=== PATIENT | female | born 1985 | race Caucasian/White ===

== ENCOUNTER 2018-10-19 16:20 | Inpatient (IN) | payer SELFPAY ==
[2018-10-19 17:11] LABS: Protime INR 1.18
--- NOTE | 2018-10-19 17:14 | EKG ---
Test Date: 2018-10-19 Test Time: 16:47:58 Powder Room Attendant: MARV MEASUREMENT RESULTS: Intervals: Rate: 108 ND: 150 QRSD: 74 QT: 364 QTc: 487 [place]: P: 38 ND: 150 QRS: 2 T: 55 INTERPRETIVE STATEMENTS: Sinus tachycardia Voltage criteria for left ventricular hypertrophy Abnormal ECG No previous ECG available for comparison Electronically Signed On 10-19-18 17:13:04 NEONATAL SPECIALIST by Yosvany Molina
--- NOTE | 2018-10-19 17:21 | RAD REPORT ---
EXAM DESCRIPTION: RAD - Chest Single View - 10/19/2018 5:06 pm CLINICAL HISTORY: Left-sided chest pain COMPARISON: June 2012 TECHNIQUE: AP portable chest image was obtained 1652 hours . FINDINGS: Lungs are clear. Heart and vasculature are normal. No measurable pleural effusion and no p neumothorax. No acute bony abnormality seen. No acute aortic findings suspected. Under penetrated por table technique, shallow inspiration and large body habitus accentuate chest findings. IMPRESSION: No acute cardiopulmonary process. No significant change from comparison.
[2018-10-19 17:24] LABS: ALT/SGPT 111 U/L (12-78); AST/SGOT 64 U/L (15-37); Albumin 3.9 g/dL (3.4-5.0); Alkaline Phosphatase 107 U/L (45-117); BUN Blood Urea Nitrogen 13 mg/dL (7-18); Bicarbonate 25 mmol/L (21-32); Bilirubin Direct 0.2 mg/dL (0-0.2); Bilirubin Total 0.6 mg/dL (0.2-1.0); Glucose Level 224 mg/dL (74-106); Magnesium 2.2 mg/dL (1.8-2.4); NT PRO-BNP 86 pg/mL (<125); Potassium 3.5 mmol/L (3.5-5.1); Protein, Total 8.4 g/dL (6.4-8.2); Sodium Level 134 mmol/L (136-145); Troponin (Emerg Dept Use Only) < 0.02 ng/mL (0.0-0.045)
[2018-10-19] MEDS ORDERED: ASPIRIN 81 MG CHEWABLE TABLET ONE (17:26)
[2018-10-19] MEDS ORDERED: LABETALOL 20 MG/4ML SYRINGE IV ONE ×2 (17:26→19:50)
[2018-10-19 17:28] LABS: Absolute Lymphocytes (CBC) 1.6 K/uL (0.7-4.9); Absolute Monocytes 0.3 K/uL (0.1-1.3); Absolute Neutrophil 4.9 K/uL (1.8-8.0); Basophils % 0.5 % (0-1.3); Eosinophils % 1.8 % (0-4.4); Hematocrit 39.5 % (36.0-45.0); Lymphocytes % 22.8 % (15.3-44.8); MPV 8.4 fL (7.6-11.3); Monocytes % 4.3 % (3.3-12.3)
[2018-10-19] MEDS ORDERED: AMLODIPINE 5 MG TAB ONE (17:57)
[2018-10-19] MEDS ORDERED: LISINOPRIL 10 MG TAB ONE (17:58)
--- NOTE | 2018-10-19 18:09 | ER ---
Nurse's Notes [facility] Name: Maren Woodard Age: 33 yrs Sex: Female : 1985 Arrival Date: 10/19/2018 Time: 16:21 Bed 5 Private MD: None, None Diagnosis: Chest pain, unspecified;Hypertensive Emergency;Type 2 diabetes mellitus Presentation: 10/19 16:46 Presenting complaint: Patient states: Intermittent L sided chest pain since , ph also reports intermittent SOB, nausea, and palpitations, denies dizziness or radiation. Transition of care: patient was not received from another setting of care. Onset of symptoms was October 19, 2018. Risk Assessment: Do you want to hurt yourself or someone else? Patient reports no desire to harm self or others. Initial Sepsis Screen: Does the patient meet any 2 criteria? No. Patient's initial sepsis screen is negative. Does the patient have a suspected source of infection? No. Patient's initial sepsis screen is negative. Care prior to arrival: None. 16:46 Method Of Arrival: Ambulatory ph 16:46 Acuity: CEDRICK 3 ph Triage Assessment: 19:23 General: Behavior is calm, cooperative, appropriate for age. 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 - Social history:: Smoking status: Patient/guardian denies using tobacco. - Ebola Screening: : No symptoms or risks identified at this time. Screenin:44 Abuse screen: Denies threats or abuse. Denies injuries from another. Nutritional sv screening: No deficits noted. Tuberculosis screening: No symptoms or risk factors identified. Fall Risk None identified. Assessment: 17:30 Reassessment: Patient appears in no apparent distress at this time. No changes from sv previously documented assessment. Patient and/or family updated on plan of care and expected duration. Pain level reassessed. Patient is alert, oriented x 3, equal unlabored respirations, skin warm/dry/pink. 18:09 Reassessment: Patient appears in no apparent distress at this time. No changes from sv previously documented assessment. Patient and/or family updated on plan of care and expected duration. Pain level reassessed. Patient is alert, oriented x 3, equal unlabored respirations, skin warm/dry/pink. 18:15 Reassessment: Dr Correa in to speak with the pt. sv 18:42 Reassessment: Patient appears in no apparent distress at this time. No changes from sv previously documented assessment. Patient and/or family updated on plan of care and expected duration. Pain level reassessed. Patient is alert, oriented x 3, equal unlabored respirations, skin warm/dry/pink. 19:20 Reassessment: Patient aware of pending admission. General: Appears in no apparent lp1 distress. Pain: Denies pain. Cardiovascular: Patient's skin is warm and dry. Respiratory: Respiratory effort is even, unlabored. Derm: Skin is pink, warm \T\ dry. Musculoskeletal: Circulation, motion, and sensation intact. 19:21 Pain: Pain does not radiate. lp1 19:39 Reassessment: Provider notified of BP of 207/131, HR 107; Patient states feeling lp1 anxious. 20:30 Reassessment: Attempted to call report at this time. lp1 20:50 Reassessment: Patient appears in no apparent distress at this time. Patient is alert, lp1 oriented x 3, equal unlabored respirations, skin warm/dry/pink. Patient states feeling anxious,provider notified Patient states feeling better. Patient states symptoms have improved. Vital Signs: 16:48 Pulse 116; Resp 20; Temp 97.4; Pulse Ox 98% on R/A; Height 5 ft. 7 in. (170.18 cm); ph Pain 5/10; 17:02 BP 217 / 125; sv 17:31 BP 177 / 114; Pulse 96 MON; Resp 15; Pulse Ox 98% ; sv 18:00 BP 211 / 130; Pulse 100; Resp 16; Pulse Ox 98% ; sv 18:32 BP 249 / 149; Pulse 118; Resp 16; Pulse Ox 97% on R/A; sv 18:33 BP 223 / 136; Pulse 104; Resp 20; Pulse Ox 100% ; sv 19:19 BP 196 / 121; Pulse 101; Resp 17; Pulse Ox 97% on R/A; Pain 0/10; lp1 19:30 BP 207 / 131; Pulse 107; Resp 19; Pulse Ox 97% on R/A; lp1 20:00 BP 186 / 122; Pulse 93; Resp 18; Pulse Ox 98% on R/A; lp1 20:23 BP 155 / 98; Pulse 97; Resp 20; Pulse Ox 97% on R/A; lp1 20:35 BP 157 / 96; Pulse 96; Resp 19; Pulse Ox 97% on R/A; lp1 20:55 BP 141 / 95; Pulse 107; Resp 19; Pulse Ox 98% on R/A; lp1 17:31 Sinus Rhythm sv ED Course: 16:21 Patient arrived in ED. sb2 16:24 None, None is Private Physician. sb2 16:44 Jewels Yang, RN is Primary Nurse. sv 16:44 Arm band placed on. sv 16:44 Patient has correct armband on for positive identification. Placed in gown. Bed in low sv position. Pulse ox on. NIBP on. 16:47 Torsten Hill PA is PHCP. jr8 16:47 Dean Lopez MD is Attending Physician. jr8 16:47 Triage completed. ph 16:50 Initial lab(s) drawn, by nc, sent to lab. Inserted saline lock: 20 gauge in right sv antecubital area, using aseptic technique. Blood collected. Flushed right antecubital with 5 ml normal saline. 17:03 X-ray completed. Portable x-ray completed in exam room. Patient tolerated procedure sg4 well. 17:07 XRAY Chest (1 view) In Process Unspecified. EDMS 17:08 EKG done, by audio visual technician. reviewed by Torsten LOFTON. sm3 17:57 Hemoglobin A1c Sent. sv 18:07 Lynette Correa MD is Hospitalizing Provider. jr8 18:10 Awaiting re-evaluation by ER provider. sv 19:09 Report given to Linnette RN and Acacia RN. sv 19:11 Primary Nurse role handed off by Jewels Yang, OBEY sv 19:19 Linnette Sinclair, RN is Primary Nurse. lp1 19:22 No provider procedures requiring assistance completed. Patient admitted, IV remains in lp1 place. Patient maintains SpO2 saturation greater than 95% on room air. Administered Medications: 17:19 Drug: Labetalol 10 mg Route: IVP; Infused Over: 2 mins; Site: right antecubital; sv 17:32 Follow up: Response: No adverse reaction sv 17:23 Drug: Aspirin Chewable Tablet 324 mg Route: PO; sv 17:32 Follow up: Response: No adverse reaction sv 17:49 Drug: Norvasc 10 mg Route: PO; sg 18:10 Follow up: Response: No adverse reaction sv 17:49 Drug: Lisinopril 10 mg Route: PO; sg 18:09 Follow up: Response: No adverse reaction sv 18:38 Drug: Labetalol 10 mg Route: IVP; Infused Over: 2 mins; Site: right antecubital; sv 19:40 Follow up: Response: Blood pressure is unchanged lp1 19:45 Drug: Labetalol 20 mg Route: IVP; Infused Over: 2 mins; Site: right antecubital; lp1 20:26 Follow up: Response: Blood pressure is lowered lp1 20:55 Drug: XANax Tablet 0.5 mg Route: PO; lp1 20:56 Follow up: Given prior to admission lp1 Intake: Outcome: 18:08 Decision to Hospitalize by Provider. grace 19:23 Condition: stable lp1 19:23 Instructed on the need for admit. 20:55 Admitted to Med/surg accompanied by tech, via wheelchair, room 204, with chart, Report lp1 called to OBEY Kelsey 21:10 Patient left the ED. lp1 Signatures: Dispatcher [employer] EDJewels Rocha RN RN sv Gay, Steven, RN RN sg Pena, Laura, RN RN lp1 Torsten Hill PA PA jr8 Hall, Patricia, RN RN Nisreen Enciso [facility] Sofiya Jorge 3 Lexy Jorgensen 4
--- NOTE | 2018-10-19 18:09 | EDPHYS ---
Physician Documentation [facility] Name: Maren Woodard Age: 33 yrs Sex: Female : 1985 Arrival Date: 10/19/2018 Time: 16:21 Bed 5 Private MD: None, None ED Physician Dean Lopez HPI: 10/19 18:04 This 33 yrs old Female presents to ER via Ambulatory with complaints of Chest jr8 Pain. 18:04 The patient or guardian reports chest pain that is located primarily in the substernal jr8 area, anterior chest wall, left. The pain does not radiate. Associated signs and symptoms: Pertinent positives: dizziness, headache, nausea, shortness of breath. The chest pain is described as sharp. Duration: The patient or guardian reports multiple episodes. Modifying factors: The symptoms are alleviated by nothing. the symptoms are aggravated by emotionally stressful situations. Severity of pain: At its worst the pain was moderate in the emergency department the pain has improved mildly. The patient has not experienced similar symptoms in the past. The patient has not recently seen a physician. 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 - Social history:: Smoking status: Patient/guardian denies using tobacco. - Ebola Screening: : No symptoms or risks identified at this time. ROS: 18:04 Eyes: Negative for injury, pain, redness, and discharge, ENT: Negative for injury, jr8 pain, and discharge, Neck: Negative for injury, pain, and swelling, Back: Negative for injury and pain, MS/Extremity: Negative for injury and deformity, Skin: Negative for injury, rash, and discoloration. 18:04 Cardiovascular: Positive for chest pain, Negative for edema, orthopnea, palpitations, paroxysmal nocturnal dyspnea. 18:04 Respiratory: Positive for dyspnea on exertion, shortness of breath, Negative for cough, orthopnea, pleurisy, sputum production, wheezing. 18:04 Abdomen/GI: Positive for nausea, Negative for abdominal pain, vomiting, diarrhea, constipation, abdominal cramps, abdominal distension. 18:04 Neuro: Positive for dizziness, headache, Negative for altered mental status, gait disturbance, loss of consciousness, numbness, seizure activity, speech changes, syncope, near syncope, tingling, tinnitus, tremor, visual changes, weakness. Exam: 18:04 Eyes: Pupils equal round and reactive to light, extra-ocular motions intact. Lids and jr8 lashes normal. Conjunctiva and sclera are non-icteric and not injected. Cornea within normal limits. Periorbital areas with no swelling, redness, or edema. ENT: Nares patent. No nasal discharge, no septal abnormalities noted. Tympanic membranes are normal and external auditory canals are clear. Oropharynx with no redness, swelling, or masses, exudates, or evidence of obstruction, uvula midline. Mucous membranes moist. Neck: Trachea midline, no thyromegaly or masses palpated, and no cervical lymphadenopathy. Supple, full range of motion without nuchal rigidity, or vertebral point tenderness. No Meningismus. Respiratory: Lungs have equal breath sounds bilaterally, clear to auscultation and percussion. No rales, rhonchi or wheezes noted. No increased work of breathing, no retractions or nasal flaring. Abdomen/GI: Soft, non-tender, with normal bowel sounds. No distension or tympany. No guarding or rebound. No evidence of tenderness throughout. Back: No spinal tenderness. No costovertebral tenderness. Full range of motion. Skin: Warm, dry with normal turgor. Normal color with no rashes, no lesions, and no evidence of cellulitis. MS/ Extremity: Pulses equal, no cyanosis. Neurovascular intact. Full, normal range of motion. Neuro: Awake and alert, GCS 15, oriented to person, place, time, and situation. Cranial nerves II-XII grossly intact. Motor strength 5/5 in all extremities. Sensory grossly intact. Cerebellar exam normal. Normal gait. 18:04 Cardiovascular: Rate: tachycardic, Rhythm: regular, Pulses: Pulses are 2+ in right radial artery and left radial artery. Heart sounds: normal, normal S1and S2, no S3 or S4, no murmur, no rub, no gallop, Edema: is not appreciated, JVD: is not appreciated. 18:04 ECG was reviewed by the Attending Physician. [facility] Vital Signs: 16:48 Pulse 116; Resp 20; Temp 97.4; Pulse Ox 98% on R/A; Height 5 ft. 7 in. (170.18 cm); ph Pain 5/10; 17:02 BP 217 / 125; sv 17:31 BP 177 / 114; Pulse 96 MON; Resp 15; Pulse Ox 98% ; sv 18:00 BP 211 / 130; Pulse 100; Resp 16; Pulse Ox 98% ; sv 18:32 BP 249 / 149; Pulse 118; Resp 16; Pulse Ox 97% on R/A; sv 18:33 BP 223 / 136; Pulse 104; Resp 20; Pulse Ox 100% ; sv 19:19 BP 196 / 121; Pulse 101; Resp 17; Pulse Ox 97% on R/A; Pain 0/10; lp1 19:30 BP 207 / 131; Pulse 107; Resp 19; Pulse Ox 97% on R/A; lp1 20:00 BP 186 / 122; Pulse 93; Resp 18; Pulse Ox 98% on R/A; lp1 20:23 BP 155 / 98; Pulse 97; Resp 20; Pulse Ox 97% on R/A; lp1 20:35 BP 157 / 96; Pulse 96; Resp 19; Pulse Ox 97% on R/A; lp1 20:55 BP 141 / 95; Pulse 107; Resp 19; Pulse Ox 98% on R/A; lp1 17:31 Sinus Rhythm sv MDM: 16:47 Patient medically screened. jr8 18:04 Data reviewed: vital signs, nurses notes, lab test result(s), EKG, radiologic studies, jr8 plain films. Data interpreted: Pulse oximetry: on room air is 98 %. Interpretation: normal. Counseling: I had a detailed discussion with the patient and/or guardian regarding: the historical points, exam findings, and any diagnostic results supporting the discharge/admit diagnosis, lab results, radiology results, the need for further work-up and treatment in the hospital. Physician consultation: Lynette Correa MD was called at 18:07, was contacted at 18:07, regarding admission, to the telemetry unit. consult, patient's condition, and will see patient. 10/19 16:51 Order name: Basic Metabolic Panel; Complete Time: 17:40 jr8 10/19 16:51 Order name: CBC with Diff; Complete Time: 17:40 8 10/19 16:51 Order name: LFT's; Complete Time: 17:40 10/19 16:51 Order name: Magnesium; Complete Time: 17:40 10/19 16:51 Order name: NT PRO-BNP; Complete Time: 17:40 10/19 16:51 Order name: PT-INR; Complete Time: 17:15 10/19 16:51 Order name: Troponin (emerg Dept Use Only); Complete Time: 17:40 10/19 16:51 Order name: XRAY Chest (1 view); Complete Time: 17:24 10/19 17:40 Order name: Hemoglobin A1c [facility] 10/19 17:57 Order name: Hemoglobin A1c; Complete Time: 18:44 EDMS 10/19 21:10 Order name: Urine Dipstick--Ancillary (enter results) [facility] 10/19 21:10 Order name: Urine --Ancillary (enter results) [facility] 10/19 16:51 Order name: EKG; Complete Time: 16:52 10/19 16:51 Order name: Cardiac monitoring; Complete Time: 17:03 10/19 16:51 Order name: EKG - Nurse/Tech; Complete Time: 17:03 10/19 16:51 Order name: IV Saline Lock; Complete Time: 17:03 10/19 16:51 Order name: Labs collected and sent; Complete Time: 17:03 10/19 16:51 Order name: O2 Per Protocol; Complete Time: 17:04 10/19 16:51 Order name: O2 Sat Monitoring; Complete Time: 17:04 10/19 16:51 Order name: Urine Test (obtain specimen); Complete Time: 21:08 10/19 16:51 Order name: Urine Dipstick-Ancillary (obtain specimen); Complete Time: 21: EC:04 Rate is 108 beats/min. Rhythm is regular, Sinus tachycardia. QRS [place] is Normal. [place] jr8 interval is shortened at 150 msec. QRS interval is normal at 74 msec. QT interval is normal at 364 msec. No Q waves. T waves are Normal. No ST changes noted. Clinical impression: Sinus tachycardia. Interpreted by me. Reviewed by me. Administered Medications: : Drug: Labetalol 10 mg Route: IVP; Infused Over: 2 mins; Site: right antecubital; sv 17:32 Follow up: Response: No adverse reaction sv 17:23 Drug: Aspirin Chewable Tablet 324 mg Route: PO; sv 17:32 Follow up: Response: No adverse reaction sv 17:49 Drug: Norvasc 10 mg Route: PO; sg 18:10 Follow up: Response: No adverse reaction sv 17:49 Drug: Lisinopril 10 mg Route: PO; sg 18:09 Follow up: Response: No adverse reaction sv 18:38 Drug: Labetalol 10 mg Route: IVP; Infused Over: 2 mins; Site: right antecubital; sv 19:40 Follow up: Response: Blood pressure is unchanged lp1 19:45 Drug: Labetalol 20 mg Route: IVP; Infused Over: 2 mins; Site: right antecubital; lp1 20:26 Follow up: Response: Blood pressure is lowered lp1 20:55 Drug: XANax Tablet 0.5 mg Route: PO; lp1 20:56 Follow up: Given prior to admission lp1 Disposition: 10/20 07:41 Co-signature as Attending Physician, Dean Lopez MD I agree with the assessment and kdr plan of care. Disposition: 10/19/18 18:08 Hospitalization ordered by Lynette Correa for Observation. Preliminary diagnosis are Chest pain, unspecified, Hypertensive Emergency, Type 2 diabetes mellitus. - Bed requested for Telemetry/MedSurg (observation). - Status is Observation. lp1 - Condition is Stable. - Problem is new. - Symptoms have improved. UTI on Admission? No Signatures: Dispatcher [employer] EDAL Jeanette Blackmon Jewels Yang RN OBEY Martin Murillo RN RN Dean Lopez MD MD kdr Martinez, Eric em1 Linnette Sinclair RN RN lp1 Torsten Hill PA PA jr8 Maryanne Tan RN RN ph Corrections: (The following items were deleted from the chart) 10/19 18:53 18:08 Hospitalization Ordered by Lynette Correa MD for Observation. Preliminary bd diagnosis is Chest pain, unspecified; Hypertensive Emergency; Type 2 diabetes mellitus. Bed requested for Telemetry/MedSurg (observation). Status is Observation. Condition is Stable. Problem is new. Symptoms have improved. UTI on Admission? No. jr8 20:48 18:53 10/19/2018 18:08 Hospitalization Ordered by Lynette Correa MD for Observation. em1 Preliminary diagnosis is Chest pain, unspecified; Hypertensive Emergency; Type 2 diabetes mellitus. Bed requested for Telemetry/MedSurg (observation). Status is Observation. Condition is Stable. Problem is new. Symptoms have improved. UTI on Admission? No. bd 21:10 20:48 10/19/2018 18:08 Hospitalization Ordered by Lynette Correa MD for Observation. lp1 Preliminary diagnosis is Chest pain, unspecified; Hypertensive Emergency; Type 2 diabetes mellitus. Bed requested for Telemetry/MedSurg (observation). Status is Observation. Condition is Stable. Problem is new. Symptoms have improved. UTI on Admission? No. em1
--- NOTE | 2018-10-19 18:34 | P.HP ---
Certification for Inpatient Patient admitted to: Observation With expected LOS: <2 Midnights Patient will require the following post-hospital care: None Practitioner: I am a practitioner with admitting privileges, knowledge of patient current condition, hospital course, and medical plan of care. Services: Services provided to patient in accordance with Admission requirements found in Title 42 Section 412.3 of the Code of Federal Regulations Patient History Date of Service: 10/19/18 Primary Care Provider: None Reason for admission: HTN urgency and Intractable Nausea/Vomiting History of Present Illness: This is a 33 y.o F with Pmhx of Obesity and preecalamsia in the previous coming to the ED with complains of chest tightness and SOB that started Last week and is getting progressively worse. Pt States that she checked her BP and was elevated at home. + for ROSS and increase frequency of urination at night time. Complains of N.V as well. Denies Abd pain, fever or chills. In the ER was found to have HTN urgency with hyperglycemia and thus admitted for further workup Allergies No Known Allergies Allergy (Unverified 06/07/12 10:23) Home Medications: Amox Tr/Potassium Clavulanate [Augmentin 500-125 Tablet] 2 each PO BID #20 tablet 06/11/12 Labetalol HCl [Trandate] 100 mg PO Q8HR #90 tablet 06/11/12 Tramadol HCl 50 mg PO Q6HR PRN #20 tablet 06/11/12 - Past Medical/Surgical History -: Pregancy induced HTN -: Obesity Past Surgical History: Reviewed- Non-Contributory - Family History Family History: Reviewed- Non-Contributory - Social History Smoking Status: Never smoker Counseled patient to stop smoking for: less than 10 minutes Alcohol use: Yes CD- Drugs: No Caffeine use: Yes Review of Systems 10-point ROS is otherwise unremarkable Physical Examination - Physical Exam General: Alert, In no apparent distress HEENT: Atraumatic, PERRLA, Mucous membr. moist/pink, EOMI, Sclerae nonicteric Neck: Supple, 2+ carotid pulse no bruit, No LAD, Without JVD or thyroid abnormality Respiratory: Clear to auscultation bilaterally, Normal air movement Cardiovascular: Regular rate/rhythm, Normal S1 S2 Gastrointestinal: Normal bowel sounds, No tenderness Musculoskeletal: No tenderness Integumentary: No rashes Neurological: Normal gait, Normal speech, Normal strength at 5/5 x4 extr, Normal tone, Normal affect Lymphatics: No axilla or inguinal lymphadenopathy - Studies Laboratory Data (last 24 hrs) 10/19/18 16:55: PT 13.9 H, INR 1.18 10/19/18 16:55: WBC 7.0, Hgb 13.8, Hct 39.5, Plt Count 299 10/19/18 16:55: Sodium 134 L, Potassium 3.5, BUN 13, Creatinine 0.70, Glucose 224 H, Magnesium 2.2, Total Bilirubin 0.6, AST 64 H, ALT 111 H, Alkaline Phosphatase 107 Assessment and Plan - Problems (Diagnosis) (1) Hypertensive urgency Current Visit: Yes Status: Acute Plan: Patient with HTN urgency. Previous Diagnosis of Preeclampsia during -Will start on Lisinopril 10mg and Metoprolol 12.5mg at this time -Hydralazine PRN (2) Hyperglycemia Current Visit: Yes Status: Acute Plan: Hyperglycemia most likely New onset Diabetic -HgA1c pending and Lipid panel pending -Will f.u with Results -IV fluids for now (3) Intractable nausea and vomiting Current Visit: Yes Status: Acute Plan: Most likely 2.2 to HTN urgency Qualifiers: Vomiting type: cyclical vomiting Qualified Code(s): G43.A1 - Cyclical vomiting, intractable (4) Obesity Current Visit: Yes Status: Chronic Qualifiers: Obesity type: due to excess calories Obesity classification: adult class 2 (BMI 35 - 39.9) Serious obesity comorbidity presence: without serious comorbidity Body mass index: BMI 36.0-36.9 Qualified Code(s): E66.09 - Other obesity due to excess calories; Z68.36 - Body mass index (BMI) 36.0-36.9, adult Discharge Plan: Home Plan to discharge in: 48 Hours - Advance Directives Does patient have a Living Will: No Does patient have a Durable POA for Healthcare: No - Code Status/Comfort Care Code Status Assessed: Yes Critical Care: No
[2018-10-19] MEDS ORDERED: ALPRAZOLAM 0.5 MG TABLET ONE (21:01)
[2018-10-19 21:19] LABS: Urine Blood NEGATIVE (NEG); Urine Glucose NEGATIVE (NEG); Urine Protein 1+ (NEG); Urine Specific Gravity 1.015 (1.005-1.030)
[2018-10-19] MEDS ORDERED: ONDANSETRON 4 MG/2 ML VIAL IV PRN (21:20)
[2018-10-19] MEDS ORDERED: PROMETHAZINE 25 MG TABLET PO PRN (21:20)
[2018-10-19] MEDS ORDERED: ACETAMINOPHEN 500 MG TAB PO PRN (21:20)
[2018-10-19 21:50] VITALS: BMI 36.3
[2018-10-19] MEDS: NA CHLORIDE 0.9% 1,000 ML IV SCH (22:39)
[2018-10-20] MEDS ORDERED: METOPROLOL TAR 25 MG TAB PO SCH (06:00)
[2018-10-20 06:17] LABS: Absolute Lymphocytes (CBC) 2.6 K/uL (0.7-4.9); Absolute Monocytes 0.5 K/uL (0.1-1.3); Basophils % 0.5 % (0-1.3); Eosinophils % 2.7 % (0-4.4); Hematocrit 37.3 % (36.0-45.0); Lymphocytes % 35.3 % (15.3-44.8); MPV 8.3 fL (7.6-11.3); RBC Red Blood Cell Count 4.72 M/uL (3.86-4.86)
[2018-10-20 06:37] LABS: ALT/SGPT 89 U/L (12-78); AST/SGOT 45 U/L (15-37); Albumin 3.4 g/dL (3.4-5.0); Alkaline Phosphatase 82 U/L (45-117); BUN Blood Urea Nitrogen 15 mg/dL (7-18); Bicarbonate 26 mmol/L (21-32); Bilirubin Total 0.6 mg/dL (0.2-1.0); Glucose Level 134 mg/dL (74-106); HDL Cholesterol 32 mg/dL (40-60); LDL Cholesterol, Calculated 123 (<130); Potassium 3.7 mmol/L (3.5-5.1); Protein, Total 7.3 g/dL (6.4-8.2); Sodium Level 138 mmol/L (136-145); Troponin I < 0.02 ng/mL (0.0-0.045)
[2018-10-20] MEDS: NA CHLORIDE 0.9% 1,000 ML IV SCH (07:20)
--- NOTE | 2018-10-20 08:22 | RAD REPORT ---
EXAM DESCRIPTION: US - Abdomen Exam Complete - 10/20/2018 7:28 am CLINICAL HISTORY: Abdominal pain. Elevated LFT COMPARISON: No comparisons FINDINGS: Diffuse fatty liver infiltration is noted. No focal liver lesions or intrahepatic biliary dilatation is seen. The gallbladder demonstrates no gallstones. A few tiny polyps are suspected, doubtful to be clinicall y significant. No gallbladder wall thickening or pericholecystic fluid. Common bile duct is normal i n caliber measuring 3 mm. Both kidneys are normal in size, shape and echotexture. No hydronephrosis, focal lesion of concern or perinephric fluid. The spleen is normal in size measuring 12 cm. The pancreas and aorta are obscured by bowel gas. The visualized aspects of the IVC are grossly normal. IMPRESSION: Prominent diffuse fatty liver.
[2018-10-20 08:50] LABS: Urine Appearance TURBID; Urine Bilirubin NEGATIVE (NEG); Urine Blood 2+ (NEG); Urine Color YELLOW; Urine Glucose NEGATIVE (NEG); Urine Protein NEGATIVE (NEG); Urine pH 5.5 (5.0-7.0)
[2018-10-20 08:53] LABS: Urine Microscopic Reflex ORDER UMIC
[2018-10-20] MEDS ORDERED: LISINOPRIL 10 MG TAB PO SCH (09:00)
[2018-10-20] MEDS ORDERED: INFLUENZA VACCINE (for 3y+) 0.5 ML DOSE IMVAC ONE (09:00)
[2018-10-20 09:08] LABS: Urine Bacteria >50 /HPF (<20); Urine RBC <5 /HPF (NONE SEEN)
[2018-10-20 09:09] LABS: Urine Culture Reflex Order NOT NEEDED
[2018-10-20] MEDS ORDERED: ALPRAZOLAM 0.25 MG TABLET PO ONE (12:15)
[2018-10-20] MEDS ORDERED: LISINOPRIL 10 MG TAB PO ONE (13:28)
[2018-10-20] MEDS ORDERED: POTASSIUM CL SA 10 MEQ TAB PO ONE (14:17)
--- NOTE | 2018-10-20 14:39 | P.PN ---
Subjective Date of Service: 10/20/18 Primary Care Provider: None Chief Complaint: HTN urgency and Intractable Nausea/Vomiting Patient seen and examined at bedside with RN. Chart reviewed. Case discussed with patient at bedside with family members. Patient currently is doing well overall. Nausea and vomiting has resolved. Patient is blood pressure has been on the elevated side this morning. Continue to monitor for next 24 to 48hrs Review of Systems 10-point ROS is otherwise unremarkable Physical Examination - Vital Signs Temperature: 96.9 F Blood Pressure: 186/106 Pulse: 78 Respirations: 20 Pulse Ox (%): 100 - Physical Exam General: Alert, In no apparent distress, Obese HEENT: Atraumatic, PERRLA, EOMI Neck: Supple, JVD not distended Respiratory: Clear to auscultation bilaterally, Normal air movement Cardiovascular: Regular rate/rhythm, Normal S1 S2 Gastrointestinal: Normal bowel sounds, No tenderness Musculoskeletal: No tenderness Integumentary: No rashes Neurological: Normal speech, Normal tone, Normal affect Lymphatics: No axilla or inguinal lymphadenopathy - Studies Laboratory Data (last 24 hrs) 10/19/18 16:55: PT 13.9 H, INR 1.18 10/19/18 16:55: WBC 7.0, Hgb 13.8, Hct 39.5, Plt Count 299 10/19/18 16:55: Sodium 134 L, Potassium 3.5, BUN 13, Creatinine 0.70, Glucose 224 H, Magnesium 2.2, Total Bilirubin 0.6, AST 64 H, ALT 111 H, Alkaline Phosphatase 107 Medications List Reviewed: Yes Assessment And Plan - Current Problems (Diagnosis) (1) Hypertensive urgency Onset Date: 10/20/18 Current Visit: Yes Status: Acute Plan: HTN urgency with BP now in 180-190/80-90 -Increased Lisinpril to 20mg and Metoprolol 25mg BID -Will monitor for next 24-48 hr and adjust medication. If consistently high then will add Amlodipine. -Awaiting ECHO at this time (2) Hyperglycemia Onset Date: 10/20/18 Current Visit: Yes Status: Acute Plan: Hyperglycemia most likely New onset Diabetic -HgA1c at 6.9 -Pt advice for Diet and excercise. -Will need to Start metformin once DC home (3) Intractable nausea and vomiting Onset Date: 10/20/18 Current Visit: Yes Status: Resolved Plan: Most likely 2.2 to HTN urgency Qualifiers: Vomiting type: cyclical vomiting Qualified Code(s): G43.A1 - Cyclical vomiting, intractable (4) Obesity Onset Date: 10/20/18 Current Visit: Yes Status: Chronic Qualifiers: Obesity type: due to excess calories Obesity classification: adult class 2 (BMI 35 - 39.9) Serious obesity comorbidity presence: without serious comorbidity Body mass index: BMI 36.0-36.9 Qualified Code(s): E66.09 - Other obesity due to excess calories; Z68.36 - Body mass index (BMI) 36.0-36.9, adult - Plan Pending clinical improvement at this time. Discharge Plan: Home Plan to discharge in: 48 Hours - Code Status/Comfort Care Code Status Assessed: Yes Critical Care: No
[2018-10-20] MEDS: METOPROLOL TAR 50 MG TAB PO SCH (21:21)
[2018-10-20] MEDS ORDERED: TEMAZEPAM 15 MG CAP PO PRN (22:50)
[2018-10-21 06:03] LABS: Absolute Lymphocytes (CBC) 2.5 K/uL (0.7-4.9); Absolute Monocytes 0.5 K/uL (0.1-1.3); Absolute Neutrophil 3.6 K/uL (1.8-8.0); Basophils % 0.5 % (0-1.3); Eosinophils % 3.3 % (0-4.4); Hematocrit 38.3 % (36.0-45.0); MPV 8.2 fL (7.6-11.3); Monocytes % 7.2 % (3.3-12.3); RBC Red Blood Cell Count 4.83 M/uL (3.86-4.86)
[2018-10-21 06:28] LABS: ALT/SGPT 89 U/L (12-78); AST/SGOT 43 U/L (15-37); Albumin 3.5 g/dL (3.4-5.0); Alkaline Phosphatase 92 U/L (45-117); BUN Blood Urea Nitrogen 16 mg/dL (7-18); Bicarbonate 25 mmol/L (21-32); Bilirubin Total 0.8 mg/dL (0.2-1.0); Glucose Level 133 mg/dL (74-106); Phosphorus 4.1 mg/dL (2.5-4.9); Potassium 3.7 mmol/L (3.5-5.1); Protein, Total 7.5 g/dL (6.4-8.2); Sodium Level 137 mmol/L (136-145)
--- NOTE | 2018-10-21 08:01 | ECHO ---
HEIGHT: 5 ft 7 in WEIGHT: 232 lb 8 oz DATE OF STUDY: 10/20/[address]: Lynette Correa MD 2-DIMENSIONAL: YES M.MODE: YES DOPPLER: YES COLOR FLOW: YES TDS: NO PORTABLE: NO DEFINITY: NO BUBBLE STUDY: NO DIAGNOSIS: CHEST PAIN CARDIAC HISTORY: CATHERIZATION: NO SURGERY: NO PROSTHETIC VALVE: NO PACEMAKER: NO MEASUREMENTS (cm) DIASTOLIC (NORMALS) SYSTOLIC (NORMALS) IVSd 1.0 (0.6-1.2) LA Diam 3.6 (1.9-4.0) LVEF 73% LVIDd 4.3 (3.5-5.7) LVIDs 2.5 (2.0-3.5) %FS 42% LVPWd 1.2 (0.6-1.2) Ao Diam 2.9 (2.0-3.7) 2 DIMENSIONAL ASSESSMENT: RIGHT ATRIUM: NORMAL LEFT ATRIUM: NORMAL RIGHT VENTRICLE: NORMAL LEFT VENTRICLE: NORMAL TRICUSPID VALVE: NORMAL MITRAL VALVE: NORMAL PULMONIC VALVE: NORMAL AORTIC VALVE: NORMAL PERICARDIAL EFFUSION: NONE AORTIC ROOT: NORMAL LEFT VENTRICULAR WALL MOTION: NORMAL DOPPLER/COLOR FLOW: NORMAL COMMENTS: NORMAL 2D ECHOCARDIOGRAM WITH DOPPLER. NO MITRAL VALVE PROLAPSE. NO WALL MOTION ABNORMALITY. TECHNOLOGIST: Maritza SHARP
[2018-10-21 08:36] VITALS: TEMP 97
[2018-10-21] MEDS ORDERED: POTASSIUM 25 MEQ EFFERV TAB PO ONE (09:00)
[2018-10-21] MEDS ORDERED: LISINOPRIL 20 MG TAB PO SCH (09:00)
[2018-10-21] MEDS: METOPROLOL TAR 50 MG TAB PO SCH (09:33)
[2018-10-21] MEDS ORDERED: ALPRAZOLAM 0.5 MG TABLET PO ONE (11:57)
[2018-10-21 14:25] VITALS: BP 160/90
[2018-10-21 14:29] VITALS: O2SAT 99
--- NOTE | 2018-10-21 17:12 | P.DS ---
Admission Date: 10/19/18 Discharge Date: 10/21/18 Primary Care Provider: None Disposition: ROUTINE DISCHARGE Discharge Condition: GOOD Reason for Admission: HTN urgency and Intractable Nausea/Vomiting - Problems (1) Hypertensive urgency Onset Date: 10/20/18 Status: Acute (2) Hyperglycemia Onset Date: 10/20/18 Status: Acute (3) Intractable nausea and vomiting Onset Date: 10/20/18 Status: Resolved Qualifiers: Vomiting type: cyclical vomiting Qualified Code(s): G43.A1 - Cyclical vomiting, intractable (4) Obesity Onset Date: 10/20/18 Status: Chronic Qualifiers: Obesity type: due to excess calories Obesity classification: adult class 2 (BMI 35 - 39.9) Serious obesity comorbidity presence: without serious comorbidity Body mass index: BMI 36.0-36.9 Qualified Code(s): E66.09 - Other obesity due to excess calories; Z68.36 - Body mass index (BMI) 36.0-36.9, adult Brief History of Present Illness: This is a 33 y.o F with Pmhx of Obesity and preecalamsia in the previous coming to the ED with complains of chest tightness and SOB that started Last week and is getting progressively worse. Pt States that she checked her BP and was elevated at home. + for ROSS and increase frequency of urination at night time. Complains of N.V as well. Denies Abd pain, fever or chills. In the ER was found to have HTN urgency with hyperglycemia and thus admitted for further workup Hospital Course: Overall during the hospital stay patient remained stable The patient was initially admitted to the hospital for hypertensive urgency. Patient was started on metoprolol 50 mg b.i.d. lisinopril 10 mg daily. Patient blood pressure however still remain elevated while here in the hospital and thus amlodipine 10 mg was added along with metoprolol was increased to 50 mg b.i.d. and lisinopril was increased to 20 mg. Patient's blood pressure then stabilized. Patient does have spikes of elevated blood pressure when she gets oral anxious and needs anxiety medication at that time. Patient was educated extensively on stress relievers and doing breathing exercises for her anxiety. Patient demonstrated understanding. Patient was also found to have a hemoglobin A1c of 6.9 and was started on metformin. Patient was educated extensively on diabetes and diet and exercise. Patient also had an abdominal ultrasound done here in the hospital due to elevated LFTs which was consistent with fatty infiltration. Patient thus was started on Lipitor 40 mg. Patient also was found to have obesity while here in the hospital and thus was educated extensively on weight loss and the need to decrease weight to help with controlling her blood pressure and diabetes. Patient had marked improvement in her symptoms and thus was discharged home under stable condition. Patient was asked to follow up with a [place] clinic for blood pressure check in about 1-2 days. Vital Signs/Physical Exam: Temp Pulse Resp BP Pulse Ox 97.0 F 78 18 160/90 H 99 10/21/18 12:00 10/21/18 12:00 10/21/18 12:00 10/21/18 14:24 10/21/18 12:00 General: Alert, In no apparent distress, Obese HEENT: Atraumatic, PERRLA, EOMI Neck: Supple, JVD not distended Respiratory: Clear to auscultation bilaterally, Normal air movement Cardiovascular: Regular rate/rhythm, Normal S1 S2 Gastrointestinal: Normal bowel sounds, No tenderness Musculoskeletal: No tenderness Integumentary: No rashes Neurological: Normal speech, Normal tone, Normal affect Lymphatics: No axilla or inguinal lymphadenopathy Laboratory Data at Discharge: WBC 6.8 K/uL (4.3-10.9) 10/21/18 05:29 Hgb 13.2 g/dL (12.0-15.0) 10/21/18 05:29 Hct 38.3 % (36.0-45.0) 10/21/18 05:29 Plt Count 288 K/uL (152-406) 10/21/18 05:29 PT 13.9 SECONDS (9.5-12.5) H 10/19/18 16:55 INR 1.18 10/19/18 16:55 Sodium 137 mmol/L (136-145) 10/21/18 05:29 Potassium 3.7 mmol/L (3.5-5.1) 10/21/18 05:29 BUN 16 mg/dL (7-18) 10/21/18 05:29 Creatinine 0.70 mg/dL (0.55-1.3) 10/21/18 05:29 Glucose 133 mg/dL (74-106) H 10/21/18 05:29 Phosphorus 4.1 mg/dL (2.5-4.9) 10/21/18 05:29 Magnesium 2.2 mg/dL (1.8-2.4) 10/19/18 16:55 Total Bilirubin 0.8 mg/dL (0.2-1.0) 10/21/18 05:29 AST 43 U/L (15-37) H 10/21/18 05:29 ALT 89 U/L (12-78) H 10/21/18 05:29 Alkaline Phosphatase 92 U/L (45-117) 10/21/18 05:29 Troponin I < 0.02 ng/mL (0.0-0.045) 10/20/18 13:05 Triglycerides 121 mg/dL (<150) 10/20/18 05:54 Cholesterol 179 mg/dL (<200) 10/20/18 05:54 HDL Cholesterol 32 mg/dL (40-60) L 10/20/18 05:54 Cholesterol/HDL Ratio 5.59 10/20/18 05:54 Home Medications: Amlodipine [Norvasc*] 10 mg PO DAILY #30 tab 10/21/18 Atorvastatin Calcium [Lipitor] 40 mg PO BEDTIME #30 tab 10/21/18 Lisinopril [Prinivil*] 20 mg PO DAILY #30 tab 10/21/18 Metformin ER [Glucophage ER*] 500 mg PO BID #60 tab.sa 10/21/18 Metoprolol Tartrate [Lopressor*] 50 mg PO BID #60 tab 10/21/18 New Medications: Amlodipine [Norvasc*] 10 mg PO DAILY #30 tab Atorvastatin Calcium [Lipitor] 40 mg PO BEDTIME #30 tab Lisinopril [Prinivil*] 20 mg PO DAILY #30 tab Metformin ER [Glucophage ER*] 500 mg PO BID #60 tab.sa Metoprolol Tartrate [Lopressor*] 50 mg PO BID #60 tab Patient Discharge Instructions: Please f.u with PCP in 1 to 2 week post discharge. New medication. Metoprolol. lisinopril. Amlodipine. Atrovastatin. metformin Diet: Regular Activity: Ad saida Followup: Shahram Jennings MD [ACTIVE - CAN ADMIT] - 1 Week
[2018-10-22] MEDS ORDERED: AMLODIPINE 10 MG TAB PO SCH (09:00)
== END 2018-10-21 15:10 | disposition home or self-care (01) | DRG 305 ==
LOC: ER 16:20 → OBSVTOIN 18:20 → ERHOLD 18:20 → 2ND 21:03
PROVIDERS: ADMIT Family Medicine; ATTEND Family Medicine
DX: I16.0 Hypertensive urgency (principal); R11.2 Nausea with vomiting, unspecified; E66.9 Obesity, unspecified; Z68.35 Body mass index [BMI] 35.0-35.9, adult; E11.65 Type 2 diabetes mellitus with hyperglycemia; Z79.84 Long term (current) use of oral hypoglycemic drugs; K76.0 Fatty (change of) liver, not elsewhere classified; R94.5 Abnormal results of liver function studies
CPT/HCPCS: 36415; 71045; 76700; 80048; 80053; 80061; 80076; 81003; 81015; 81025; 82962; 83036; 83735; 83880; 84100; 84443; 84484; 85025; 85610; 93005; 93306; 96374; 99285; G0008; J7030; Q2035

== ENCOUNTER 2018-10-24 17:42 | Emergency (ER) | payer SELFPAY ==
[2018-10-24] MEDS ORDERED: NA CHLORIDE 0.9% 1,000 ML ONE (18:44)
[2018-10-24 18:51] LABS: Protime INR 1.19
--- NOTE | 2018-10-24 18:52 | RAD REPORT ---
EXAM DESCRIPTION: Vito Single View10/24/2018 6:19 pm CLINICAL HISTORY: cough COMPARISON: none FINDINGS: The lungs appear clear of acute infiltrate. The heart is normal size IMPRESSION: No acute abnormalities displayed
[2018-10-24 18:59] LABS: Absolute Lymphocytes (CBC) 2.5 K/uL (0.7-4.9); Absolute Monocytes 0.4 K/uL (0.1-1.3); Absolute Neutrophil 5.2 K/uL (1.8-8.0); Basophils % 0.5 % (0-1.3); Hematocrit 38.9 % (36.0-45.0); Lymphocytes % 30.2 % (15.3-44.8); MPV 8.4 fL (7.6-11.3); Monocytes % 5.1 % (3.3-12.3); RBC Red Blood Cell Count 5.02 M/uL (3.86-4.86)
--- NOTE | 2018-10-24 19:11 | RAD REPORT ---
EXAM DESCRIPTION: CT - Head Brain Wo Cont - 10/24/2018 6:46 pm CLINICAL HISTORY: Dizziness/TIA COMPARISON: None. TECHNIQUE: Computed axial tomography of the head was obtained. IV contrast was not requested. All CT scans are performed using dose optimization technique as appropriate and may include automated exposure control or mA/KV adjustment according to patient size. FINDINGS: An intracranial bleed is not seen . The ventricles are normal in caliber. No extra-axial fluid collection is noted. Fluid within the sinuses/ mastoids is not seen. IMPRESSION: No acute intracranial abnormality is seen. If patient's symptoms persist MRI of the bra in would be recommended.
[2018-10-24 19:13] LABS: ALT/SGPT 94 U/L (12-78); AST/SGOT 49 U/L (15-37); Albumin 3.8 g/dL (3.4-5.0); Alkaline Phosphatase 104 U/L (45-117); BUN Blood Urea Nitrogen 22 mg/dL (7-18); Bicarbonate 25 mmol/L (21-32); Bilirubin Direct 0.2 mg/dL (0-0.2); Bilirubin Total 0.5 mg/dL (0.2-1.0); Glucose Level 118 mg/dL (74-106); Lipase 140 U/L (73-393); Magnesium 2.4 mg/dL (1.8-2.4); NT PRO-BNP 29 pg/mL (<125); Potassium 3.9 mmol/L (3.5-5.1); Protein, Total 8.3 g/dL (6.4-8.2); Sodium Level 135 mmol/L (136-145); Troponin (Emerg Dept Use Only) < 0.02 ng/mL (0.0-0.045)
--- NOTE | 2018-10-24 19:14 | ER ---
Nurse's Notes [facility] Name: Maren Woodard Age: 33 yrs Sex: Female : 1985 Arrival Date: 10/24/2018 Time: 17:46 Bed 16 Private MD: None, None Diagnosis: Essential (primary) hypertension;Type 2 diabetes mellitus Presentation: 10/24 17:57 Presenting complaint: Patient states: R upper arm tingling that began 2 hours ago. Pt ss reports she was recently discharged from hospital for hypertension and called the floor nurse who advised her to come to ER. PT denies any other s/s. Transition of care: patient was not received from another setting of care. Onset of symptoms was October 24, 2018. Risk Assessment: Do you want to hurt yourself or someone else? Patient reports no desire to harm self or others. Initial Sepsis Screen: Does the patient meet any 2 criteria? No. Patient's initial sepsis screen is negative. Does the patient have a suspected source of infection? No. Patient's initial sepsis screen is negative. Care prior to arrival: None. 17:57 Method Of Arrival: Ambulatory ss 17:57 Acuity: CEDRICK 3 ss 18:00 Note Pt reports that she was unable to afford her Lisinopril and was planning on ss filling that prescription . Historical: - Allergies: 17:59 No Known Allergies; ss - PMHx: 17:59 Hypertension; ss - PSHx: 17:59 ; ss - Immunization history:: Adult Immunizations up to date. - Social history:: Smoking status: Patient/guardian denies using tobacco. - Ebola Screening: : Patient denies exposure to infectious person Patient denies travel to an Ebola-affected area in the 21 days before illness onset. - Family history:: not pertinent. Screenin:05 Abuse screen: Denies threats or abuse. Nutritional screening: No deficits noted. rb1 Tuberculosis screening: No symptoms or risk factors identified. Fall Risk None identified. Assessment: 18:05 General: Appears in no apparent distress. comfortable, obese, Behavior is calm, rb1 cooperative, Denies fever. Pain: Denies pain. Neuro: Level of Consciousness is awake, alert, obeys commands, Oriented to person, place, time, situation. Neuro: Reports Tingling in the right arm, denies pain. Cardiovascular: Capillary refill < 3 seconds is brisk in bilateral fingers. Respiratory: Airway is patent Respiratory effort is even, unlabored, Respiratory pattern is regular, symmetrical. GI: No signs and/or symptoms were reported involving the gastrointestinal system. : No signs and/or symptoms were reported regarding the genitourinary system. Derm: Skin is pink, warm \T\ dry. Musculoskeletal: Range of motion: intact in all extremities. 19:15 Reassessment: Patient appears in no apparent distress at this time. Patient and/or jb4 family updated on plan of care and expected duration. Pain level reassessed. Patient is alert, oriented x 3, equal unlabored respirations, skin warm/dry/pink. Monitor B/P before discharge. General: Appears in no apparent distress. comfortable, Behavior is calm, cooperative. Cardiovascular: Patient's skin is warm and dry. Respiratory: Airway is patent Respiratory effort is even, unlabored, Respiratory pattern is regular, symmetrical. 20:30 Reassessment: Patient appears in no apparent distress at this time. Patient and/or jb4 family updated on plan of care and expected duration. Pain level reassessed. Patient is alert, oriented x 3, equal unlabored respirations, skin warm/dry/pink. Vital Signs: 17:59 BP 196 / 118; Pulse 86; Resp 15; Temp 97.4(TE); Pulse Ox 100% on R/A; Weight 99.79 kg; Height 5 ft. 7 in. (170.18 cm); 19:30 BP 153 / 106; Pulse 89; Resp 18; Pulse Ox 100% on R/A; jb4 20:15 BP 180 / 104; Pulse 94; Resp 16; Pulse Ox 100% on R/A; jb4 17:59 Body Mass Index 34.46 (99.79 kg, 170.18 cm) NIH Stroke Scale Scores: 18:44 NIHSS Score: 0 matthew ED Course: 17:46 Patient arrived in ED. sb2 17:46 None, None is Private Physician. sb2 17:58 Triage completed. ss 17:59 Arm band placed on right wrist. ss 18:05 Mo Howard MD is Attending Physician. matthew 18:05 Patient has correct armband on for positive identification. Placed in gown. Bed in low rb1 position. Call light in reach. Side rails up X 1. groundwater monitoring technician on. Pulse ox on. NIBP on. 18:15 EKG done, by ED staff, reviewed by Mo Howard MD. 3 18:19 X-ray completed. Portable x-ray completed in exam room. Patient tolerated procedure az well. 18:19 XRAY Chest (1 view) In Process Unspecified. EDMS 18:33 Luiza Byers, RN is Primary Nurse. rb1 18:34 Initial lab(s) drawn, by de, sent to lab. Inserted saline lock: 22 gauge in right 3 forearm, using aseptic technique. Blood collected. 18:46 CT Head Brain wo Cont In Process Unspecified. EDMS 18:55 Report given to OBEY Ladd. rb1 19:05 Urine collected: clean catch specimen, clear. 3 19:09 Gladys Marrero FNP-C is [facility] snw 20:45 No provider procedures requiring assistance completed. IV discontinued, intact, jb4 bleeding controlled. Administered Medications: 18:58 Drug: NS 0.9% 1000 ml Route: IV; Rate: 1 bolus; Site: right forearm; rb1 20:51 Follow up: Response: No adverse reaction; IV Status: Completed infusion jb4 19:09 CANCELLED (Duplicate Order): Lisinopril 10 mg PO once; give to go home , for tomorrow matthew 19:09 CANCELLED (Duplicate Order): Lisinopril 10 mg PO once; give to go, for wednesday matthew 19:20 Drug: Lisinopril 10 mg Route: PO; jb4 20:51 Follow up: Response: No adverse reaction jb4 19:40 Drug: Aspirin 162 mg Route: PO; jb4 20:50 Follow up: Response: No adverse reaction jb4 19:40 Drug: foLIC Acid 1 mg Route: IVPB; Site: right forearm; jb4 20:50 Follow up: Response: No adverse reaction; IV Status: Completed infusion jb4 19:45 Drug: Enalaprilat 1.25 mg Route: IV; Rate: per protocol; Site: right forearm; jb4 19:47 Follow up: Response: No adverse reaction; IV Status: Completed infusion; Given IVP per 4 pharmacy protocol 20:50 Drug: Lisinopril 20 mg Route: PO; jb4 20:50 Follow up: Response: No adverse reaction jb4 Intake: Outcome: 19:13 Discharge ordered by . snw 20:45 Discharged to home ambulatory. jb4 20:45 Condition: stable 20:45 Discharge instructions given to patient, family, Instructed on discharge instructions, follow up and referral plans. medication usage, Demonstrated understanding of instructions, follow-up care, medications, Prescriptions given X 2. 21:01 Patient left the ED. jb4 NIH Stroke Scale - NIH Stroke Score Date: 10/24/2018 Time: 18:44 Total Score = 0 1a. Level of Consciousness (LOC) - 0(Alert) 1b. Level of Consciousness (LOC) (Year \T\ Age) - 0(Both) 1c. LOC Commands (Open \T\ Closes Eyes/Warehouse Worker) - 0(Both) 2. Best Gaze (Lateral Gaze Paresis) - 0(Normal) 3. Visual Field Loss - 0(No visual loss) 4. Facial Palsy - 0(Normal) 5a. Left Arm: Motor (10-second hold) - 0(No drift) 5b. Right Arm: Motor (10-second hold) - 0(No drift) 6a. Left Leg: Motor (5-second hold - always test supine) - 0(No drift) 6b. Right Leg: Motor (5-second hold - always test supine) - 0(No drift) 7. Limb Ataxia (finger/nose \T\ heel/butler - test with eyes open) - 0(Absent) 8. Sensory Loss (pinprick arms/legs/face) - 0(Normal) 9. Best Language: Aphasia (description/naming/reading) - 0(No aphasia) 10. Dysarthria (speech clarity - read or repeat words) - 0(Normal) 11. Extinction and Inattention (visual/tactile/auditory/spatial/personal) - 0(No abnormality) Initials: matthew Signatures: Dispatcher [employer] EDMS Mo Howard MD MD cha Therrien, Shelly, L[employer] PLAST[employer] ASSEMBLER AND [employer]UER-C [employer] ASSEM[employer]ER [employer]ER-Csnw Rebeca Mohan RN RN Luiza Mcmillan, Mars Reyna RN, RN RN [facility] Gladys Simms formerly [facility] Nisreen Enciso Vielka Harvey Corrections: (The following items were deleted from the chart) 18:26 18:25 EKG done, by ED staff, reviewed by Mo Howard MD [facility]
--- NOTE | 2018-10-24 19:14 | EDPHYS ---
Physician Documentation [facility] Name: Maren Woodard Age: 33 yrs Sex: Female : 1985 Arrival Date: 10/24/2018 Time: 17:46 Bed 16 Private MD: None, None ED Physician oM Howard HPI: 10/24 18:44 This 33 yrs old Female presents to ER via Ambulatory with complaints of ARM matthew TINGLING. 18:44 The patient or guardian complains of tingling right upper extremity. The complaints matthew affect the right bicep and right tricep. Context: The problem was sustained at home, resulted from unknown cause. Onset: The symptoms/episode began/occurred today. Treatment prior to arrival includes: no previous treatment. Modifying factors: The symptoms are alleviated by nothing. the symptoms are aggravated by nothing. The patient complains of pain to the forehead, left temporal area and right frontal area. The patient describes the headache as a pressure. Onset: The symptoms/episode began/occurred today. The patient presents with dizziness. Historical: - Allergies: 17:59 No Known Allergies; ss - PMHx: 17:59 Hypertension; ss - PSHx: 17:59 ; ss - Immunization history:: Adult Immunizations up to date. - Social history:: Smoking status: Patient/guardian denies using tobacco. - Ebola Screening: : Patient denies exposure to infectious person Patient denies travel to an Ebola-affected area in the 21 days before illness onset. - Family history:: not pertinent. ROS: 18:44 Constitutional: Negative for fever, chills, and weight loss, Eyes: Negative for injury, matthew pain, redness, and discharge, ENT: Negative for injury, pain, and discharge, Neck: Negative for injury, pain, and swelling, Cardiovascular: Negative for chest pain, palpitations, and edema, Respiratory: Negative for shortness of breath, cough, wheezing, and pleuritic chest pain, Abdomen/GI: Negative for abdominal pain, nausea, vomiting, diarrhea, and constipation, Back: Negative for injury and pain, : Negative for injury, bleeding, discharge, and swelling, MS/Extremity: Negative for injury and deformity, Skin: Negative for injury, rash, and discoloration, Psych: Negative for depression, anxiety, suicide ideation, homicidal ideation, and hallucinations, Allergy/Immunology: Negative for hives, rash, and allergies, Endocrine: Negative for neck swelling, polydipsia, polyuria, polyphagia, and marked weight changes, Hematologic/Lymphatic: Negative for swollen nodes, abnormal bleeding, and unusual bruising. 18:44 Neuro: Positive for headache, tingling, of the right bicep and right tricep. Exam: 18:44 Constitutional: This is a well developed, well nourished patient who is awake, alert, matthew and in no acute distress. Head/Face: Normocephalic, atraumatic. Eyes: Pupils equal round and reactive to light, extra-ocular motions intact. Lids and lashes normal. Conjunctiva and sclera are non-icteric and not injected. Cornea within normal limits. Periorbital areas with no swelling, redness, or edema. ENT: Nares patent. No nasal discharge, no septal abnormalities noted. Tympanic membranes are normal and external auditory canals are clear. Oropharynx with no redness, swelling, or masses, exudates, or evidence of obstruction, uvula midline. Mucous membranes moist. Neck: Trachea midline, no thyromegaly or masses palpated, and no cervical lymphadenopathy. Supple, full range of motion without nuchal rigidity, or vertebral point tenderness. No Meningismus. Chest/axilla: Normal chest wall appearance and motion. Nontender with no deformity. No lesions are appreciated. Cardiovascular: Regular rate and rhythm with a normal S1 and S2. No gallops, murmurs, or rubs. Normal PMI, no JVD. No pulse deficits. Respiratory: Lungs have equal breath sounds bilaterally, clear to auscultation and percussion. No rales, rhonchi or wheezes noted. No increased work of breathing, no retractions or nasal flaring. Abdomen/GI: Soft, non-tender, with normal bowel sounds. No distension or tympany. No guarding or rebound. No evidence of tenderness throughout. Back: No spinal tenderness. No costovertebral tenderness. Full range of motion. Skin: Warm, dry with normal turgor. Normal color with no rashes, no lesions, and no evidence of cellulitis. MS/ Extremity: Pulses equal, no cyanosis. Neurovascular intact. Full, normal range of motion. Neuro: Awake and alert, GCS 15, oriented to person, place, time, and situation. Cranial nerves II-XII grossly intact. Motor strength 5/5 in all extremities. Sensory grossly intact. Cerebellar exam normal. Normal gait. Psych: Awake, alert, with orientation to person, place and time. Behavior, mood, and affect are within normal limits. Vital Signs: 17:59 BP 196 / 118; Pulse 86; Resp 15; Temp 97.4(TE); Pulse Ox 100% on R/A; Weight 99.79 kg; ss Height 5 ft. 7 in. (170.18 cm); 19:30 BP 153 / 106; Pulse 89; Resp 18; Pulse Ox 100% on R/A; jb4 20:15 BP 180 / 104; Pulse 94; Resp 16; Pulse Ox 100% on R/A; jb4 17:59 Body Mass Index 34.46 (99.79 kg, 170.18 cm) NIH Stroke Scale Scores: 18:44 NIHSS Score: 0 matthew MDM: 18:05 Patient medically screened. matthew 18:48 Data reviewed: vital signs, nurses notes, lab test result(s), EKG, radiologic studies, [facility] CT scan, plain films. 10/24 18:09 Order name: Basic Metabolic Panel; Complete Time: 19:13 [facility] 10/24 18:09 Order name: CBC with Diff; Complete Time: 19:30 [facility] 10/24 18:09 Order name: LFT's; Complete Time: 19:13 [facility] 10/24 18:09 Order name: Magnesium; Complete Time: 19:13 [facility] 10/24 18:09 Order name: NT PRO-BNP; Complete Time: 19:13 [facility] 10/24 18:09 Order name: PT-INR; Complete Time: 19:01 [facility] 10/24 18:09 Order name: Troponin (emerg Dept Use Only); Complete Time: 19:13 [facility] 10/24 18:09 Order name: Lipase; Complete Time: 19:13 [facility] 10/24 18:09 Order name: Urine Culture [facility] 10/24 18:18 Order name: Sed Rate; Complete Time: 19:30 [facility] 10/24 18:46 Order name: C-Reactive Protein; Complete Time: 19:13 EDMS 10/24 19:09 Order name: Urine Dipstick--Ancillary (enter results); Complete Time: 19:30 em1 10/24 19:09 Order name: Urine --Ancillary (enter results); Complete Time: 19:30 em1 10/24 18:09 Order name: XRAY Chest (1 view); Complete Time: 19:01 [facility] 10/24 18:09 Order name: EKG; Complete Time: 18:10 [facility] 10/24 18:09 Order name: Cardiac monitoring; Complete Time: 18:26 [facility] 10/24 18:09 Order name: EKG - Nurse/Tech; Complete Time: 18:26 [facility] 10/24 18:09 Order name: IV Saline Lock; Complete Time: 18:38 [facility] 10/24 18:09 Order name: Labs collected and sent; Complete Time: 18:38 [facility] 10/24 18:09 Order name: O2 Per Protocol; Complete Time: 18:26 [facility] 10/24 18:09 Order name: CT Head Brain wo Cont; Complete Time: 19:12 [facility] 10/24 18:09 Order name: O2 Sat Monitoring; Complete Time: 18:26 [facility] 10/24 18:09 Order name: Urine Dipstick-Ancillary (obtain specimen); Complete Time: 19:05 [facility] 10/24 18:09 Order name: Urine Test (obtain specimen); Complete Time: 19:05 [facility] Administered Medications: 18:58 Drug: NS 0.9% 1000 ml Route: IV; Rate: 1 bolus; Site: right forearm; rb1 20:51 Follow up: Response: No adverse reaction; IV Status: Completed infusion 4 19:09 CANCELLED (Duplicate Order): Lisinopril 10 mg PO once; give to go home , for tomorrow matthew 19:09 CANCELLED (Duplicate Order): Lisinopril 10 mg PO once; give to go, for wednesday matthew 19:20 Drug: Lisinopril 10 mg Route: PO; jb4 20:51 Follow up: Response: No adverse reaction jb4 19:40 Drug: Aspirin 162 mg Route: PO; jb4 20:50 Follow up: Response: No adverse reaction jb4 19:40 Drug: foLIC Acid 1 mg Route: IVPB; Site: right forearm; jb4 20:50 Follow up: Response: No adverse reaction; IV Status: Completed infusion jb4 19:45 Drug: Enalaprilat 1.25 mg Route: IV; Rate: per protocol; Site: right forearm; jb4 19:47 Follow up: Response: No adverse reaction; IV Status: Completed infusion; Given IVP per [facility] pharmacy protocol 20:50 Drug: Lisinopril 20 mg Route: PO; [facility] 20:50 Follow up: Response: No adverse reaction [facility] Disposition: 10/24/18 19:13 Discharged to Home. Impression: Essential (primary) hypertension, Type 2 diabetes mellitus. - Condition is Stable. - Discharge Instructions: Type 2 Diabetes Mellitus, Diagnosis, Adult, Hypertension, Hypertension, [id number], How to Take Your Blood Pressure, [id number], Aspirin and Your Heart, Type 2 Diabetes Mellitus, Diagnosis, Adult, [id number], Managing Your Hypertension. - Prescriptions for Lisinopril 10 mg Oral Tablet - take 1 tablet by ORAL route once daily; 20 tablet. Vitamin 27- 0.8 mg Oral Tablet - take 1 tablet by ORAL route once daily; 30 tablet. - Medication Reconciliation Form, Thank You Letter, Antibiotic Education, Prescription Opioid Use form. - Follow up: Private Physician; When: 2 - 3 days; Reason: Recheck today's complaints, Continuance of care, Re-evaluation by your physician. - Problem is new. - Symptoms have improved. NIH Stroke Scale - NIH Stroke Score Date: 10/24/2018 Time: 18:44 Total Score = 0 1a. Level of Consciousness (LOC) - 0(Alert) 1b. Level of Consciousness (LOC) (Year \T\ Age) - 0(Both) 1c. LOC Commands (Open \T\ Closes Eyes/Supervisor Beater Room) - 0(Both) 2. Best Gaze (Lateral Gaze Paresis) - 0(Normal) 3. Visual Field Loss - 0(No visual loss) 4. Facial Palsy - 0(Normal) 5a. Left Arm: Motor (10-second hold) - 0(No drift) 5b. Right Arm: Motor (10-second hold) - 0(No drift) 6a. Left Leg: Motor (5-second hold - always test supine) - 0(No drift) 6b. Right Leg: Motor (5-second hold - always test supine) - 0(No drift) 7. Limb Ataxia (finger/nose \T\ heel/butler - test with eyes open) - 0(Absent) 8. Sensory Loss (pinprick arms/legs/face) - 0(Normal) 9. Best Language: Aphasia (description/naming/reading) - 0(No aphasia) 10. Dysarthria (speech clarity - read or repeat words) - 0(Normal) 11. Extinction and Inattention (visual/tactile/auditory/spatial/personal) - 0(No abnormality) Initials: [facility] Signatures: Dispatcher [employer] EDMO Mo Howard MD MD cha Therrien, Shelly, LOT PORTER-C LOT PORTER-Csnw Rebeca Mohan RN RN ss Luiza Byers RN RN rb1 Mars Muhammad RN RN jb4 Corrections: (The following items were deleted from the chart) 18:46 18:19 C-REACTIVE PROTEIN+C.LAB.BRZ [facility]. [facility] 19:09 18:50 Lisinopril 10 mg PO once; give to go home , for tomorrow ordered. [facility] 19:09 18:50 Lisinopril 10 mg PO once; give to go, for wednesday ordered. [facility] 21:01 19:13 10/24/2018 19:13 Discharged to Home. Impression: Essential (primary) jb4 hypertension; Type 2 diabetes mellitus. Condition is Stable. Discharge Instructions: Type 2 Diabetes Mellitus, Diagnosis, Adult, Hypertension, Hypertension, [id number], How to Take Your Blood Pressure, Jumu-[id number]-[id number], Aspirin and Your Heart, Type 2 Diabetes Mellitus, Diagnosis, Adult, Uklz-xs-Ktzl, Managing Your Hypertension. Prescriptions for Lisinopril 10 mg Oral Tablet - take 1 tablet by ORAL route once daily; 20 tablet. and Forms are Medication Reconciliation Form, Thank You Letter, Antibiotic Education, Prescription Opioid Use. Follow up: Private Physician; When: 2 - 3 days; Reason: Recheck today's complaints, Continuance of care, Re-evaluation by your physician. Problem is new. Symptoms have improved. snw
[2018-10-24 19:29] LABS: Urine Blood 1+ (NEG); Urine Glucose NEGATIVE (NEG); Urine Protein NEGATIVE (NEG); Urine Specific Gravity 1.015 (1.005-1.030); Urine pH 5.5 (5.0-7.0)
[2018-10-24] MEDS ORDERED: ENALAPRILAT 1.25 MG/ML VIAL IV ONE (19:29)
[2018-10-24] MEDS ORDERED: LISINOPRIL 10 MG TAB ONE ×2 (19:29→19:43)
[2018-10-24] MEDS ORDERED: ASPIRIN 81 MG CHEWABLE TABLET ONE (19:43)
[2018-10-24] MEDS ORDERED: FOLIC ACID 5 MG/ML VIAL ONE (19:45)
[2018-10-24 21:53] VITALS: TEMP 97.4; O2SAT 100
[2018-10-24 21:55] VITALS: BP 180/104
--- NOTE | 2018-10-25 10:03 | EKG ---
Test Date: 2018-10-24 Test Time: 18:04:42 Lung Splitter: SABINE MEASUREMENT RESULTS: Intervals: Rate: 82 UT: 172 QRSD: 82 QT: 368 QTc: 429 [place]: P: 27 UT: 172 QRS: 2 T: 67 INTERPRETIVE STATEMENTS: Normal sinus rhythm Voltage criteria for left ventricular hypertrophy Abnormal ECG Compared to ECG 10/19/2018 16:47:58 Sinus tachycardia no longer present Electronically Signed On 10-25-18 09:54:39 COMPUTER SCIENCES PROFESSOR by Calixto Zazueta
== END 2018-10-24 21:01 | disposition home or self-care (01) ==
LOC: ER 17:42
DX: I10 Essential (primary) hypertension (principal); E11.9 Type 2 diabetes mellitus without complications; R94.31 Abnormal electrocardiogram [ECG] [EKG]
CPT/HCPCS: 36415; 70450; 71045; 80048; 80076; 81003; 81025; 83690; 83735; 83880; 84484; 85025; 85610; 85652; 86140; 87086; 87088; 93005; 96361; 96365; 96375; 99284; J7030

== ENCOUNTER 2018-12-20 19:31 | Emergency (ER) | payer SELFPAY ==
--- NOTE | 2018-12-20 20:37 | RAD REPORT ---
EXAM DESCRIPTION: Vito Single View12/20/2018 8:32 pm CLINICAL HISTORY: sob COMPARISON: October 2018 FINDINGS: The lungs appear clear of acute infiltrate. The heart is normal size IMPRESSION: No acute abnormalities displayed
[2018-12-20] MEDS ORDERED: LABETALOL 20 MG/4ML SYRINGE IV ONE (20:38)
[2018-12-20 21:10] LABS: Protime INR 1.24
[2018-12-20 21:18] LABS: ALT/SGPT 48 U/L (12-78); AST/SGOT 25 U/L (15-37); Albumin 3.8 g/dL (3.4-5.0); Alkaline Phosphatase 121 U/L (45-117); BUN Blood Urea Nitrogen 18 mg/dL (7-18); Bicarbonate 23 mmol/L (21-32); Bilirubin Direct 0.1 mg/dL (0-0.2); Bilirubin Total 0.3 mg/dL (0.2-1.0); Glucose Level 106 mg/dL (74-106); Magnesium 2.2 mg/dL (1.8-2.4); NT PRO-BNP 30 pg/mL (<125); Potassium 3.7 mmol/L (3.5-5.1); Protein, Total 8.4 g/dL (6.4-8.2); Sodium Level 138 mmol/L (136-145); Troponin (Emerg Dept Use Only) < 0.02 ng/mL (0.0-0.045)
[2018-12-20 21:26] LABS: Absolute Lymphocytes (CBC) 2.5 K/uL (0.7-4.9); Absolute Monocytes 0.3 K/uL (0.1-1.3); Absolute Neutrophil 4.3 K/uL (1.8-8.0); Basophils % 0.3 % (0-1.3); Eosinophils % 1.8 % (0-4.4); Hematocrit 38.2 % (36.0-45.0); Lymphocytes % 34.7 % (15.3-44.8); MPV 8.4 fL (7.6-11.3); Monocytes % 4.4 % (3.3-12.3); RBC Red Blood Cell Count 4.88 M/uL (3.86-4.86)
--- NOTE | 2018-12-20 21:36 | ER ---
Nurse's Notes [facility] Name: Maren Woodard Age: 33 yrs Sex: Female : 1985 Arrival Date: 12/20/2018 Time: 19:36 Bed 16 Private MD: Diagnosis: Hypertensive heart disease Presentation: 12/20 19:58 Presenting complaint: Patient states: "For the past 3 days, I have had trouble catching lp1 my breath"; ran out of medications about 2 weeks; States similar symptoms when blood pressure was high and hospitalized. Transition of care: patient was not received from another setting of care. Onset of symptoms was December 17, 2018. Risk Assessment: Do you want to hurt yourself or someone else? Patient reports no desire to harm self or others. Initial Sepsis Screen: Does the patient meet any 2 criteria? No. Patient's initial sepsis screen is negative. Does the patient have a suspected source of infection? No. Patient's initial sepsis screen is negative. Care prior to arrival: None. 19:58 Method Of Arrival: Ambulatory lp1 19:58 Acuity: CEDRICK 2 lp1 Triage Assessment: 20:22 Respiratory: Reports shortness of breath at rest Onset: The symptoms/episode ao began/occurred gradually, the patient has mild shortness of breath. FIRE CAPTAIN: 20:01 LMP 12/17/2018 lp1 Historical: - Allergies: 20:01 No Known Allergies; lp1 - Home Meds: 20:01 Lisinopril Oral [Active]; Metoprolol Tartrate Oral [Active]; Metformin Oral [Active]; lp1 - PMHx: 20:01 high BP during ; Hypertension; lp1 - PSHx: 20:01 ; lp1 - Immunization history:: Adult Immunizations up to date. - Social history:: Smoking status: Patient/guardian denies using tobacco. - Ebola Screening: : No symptoms or risks identified at this time. Screenin:01 Abuse screen: Denies threats or abuse. Denies injuries from another. Nutritional ao screening: No deficits noted. Tuberculosis screening: No symptoms or risk factors identified. Fall Risk None identified. Assessment: 20:19 General: Appears in no apparent distress. comfortable, Behavior is calm, cooperative, ao appropriate for age. Pain: Denies pain. Neuro: Level of Consciousness is awake, alert, obeys commands, Oriented to person, place, time, situation, Appropriate for age Moves all extremities. Full function Speech is normal, Facial symmetry appears normal. Cardiovascular: Heart tones S1 S2 Rhythm is regular. Respiratory: Airway is patent Respiratory effort is even, unlabored, Respiratory pattern is regular, symmetrical, Breath sounds are clear bilaterally. GI: Abdomen is obese, Bowel sounds present X 4 quads. : No signs and/or symptoms were reported regarding the genitourinary system. EENT: No signs and/or symptoms were reported regarding the EENT system. Derm: Skin is intact, Skin is pink, warm \\T\\ dry. normal, Skin temperature is warm. Musculoskeletal: Circulation, motion, and sensation intact. Range of motion: intact in all extremities. Vital Signs: 20:01 BP 179 / 133; Pulse 114; Resp 18; Temp 97.8(O); Pulse Ox 99% on R/A; Weight 103.42 kg; lp1 Height 5 ft. 7 in. (170.18 cm); Pain 0/10; 22:01 BP 162 / 115; Pulse 82; Resp 16; Temp 98.3; Pulse Ox 100% on R/A; Pain 0/10; ao 20:01 Body Mass Index 35.71 (103.42 kg, 170.18 cm) lp1 ED Course: 19:36 Patient arrived in ED. es 20:01 Triage completed. lp1 20:01 Arm band placed on left wrist. lp1 20:17 London Owusu, RN is Primary Nurse. ao 20:18 Indra Dorsey MD is Attending Physician. gs 20:19 Indra Dorsey MD is Attending Physician. gs 20:32 XRAY Chest (1 view) In Process Unspecified. EDMS 22:02 Patient has correct armband on for positive identification. ao 22:02 No provider procedures requiring assistance completed. IV discontinued, intact, ao bleeding controlled, No redness/swelling at site. Administered Medications: 20:50 Drug: Labetalol 20 mg Route: IVP; Infused Over: 2 mins; Site: left antecubital; ao 22:00 Follow up: Response: No adverse reaction ao 21:51 Drug: Metoprolol 25 mg Route: PO; ao 22:00 Follow up: Response: No adverse reaction ao 21:51 Drug: Lisinopril 20 mg Route: PO; ao 22:00 Follow up: Response: No adverse reaction ao Outcome: 21:35 Discharge ordered by . natasha 22:01 Discharged to home ao 22:01 Condition: good 22:01 Discharge instructions given to patient, Instructed on discharge instructions, follow up and referral plans. Demonstrated understanding of instructions, follow-up care, medications. 22:02 Patient left the ED. ao Signatures: Dispatcher [employer] Diana Matos Laura, RN RN lp1 London Owusu RN RN ao Starr, Gregory, MD MD gs Corrections: (The following items were deleted from the chart) 20:02 19:58 Acuity: CEDRICK 3 lp1 lp1
--- NOTE | 2018-12-20 21:36 | EDPHYS ---
Physician Documentation [facility] Name: Maren Woodard Age: 33 yrs Sex: Female : 1985 Arrival Date: 12/20/2018 Time: 19:36 Bed 16 Private MD: ED Physician Indra Dorsey HPI: 12/20 21:02 This 33 yrs old Female presents to ER via Ambulatory with complaints of High gs Blood Pressure, Breathing Difficulty. 21:02 The patient has elevated blood pressure and discovered this at home. Onset: The gs symptoms/episode began/occurred 1 week(s) ago, and became persistent. Modifying factors: The symptoms are alleviated by prescription meds. Associated signs and symptoms: Pertinent positives: dyspnea, Pertinent negatives: chest pain, dizziness. Severity of symptoms: At its worst the blood pressure was severe, in the emergency department the blood pressure is unchanged. The patient has experienced similar episodes in the past, a few times. GROUP TESTER: 20:01 LMP 12/17/2018 lp1 Historical: - Allergies: 20:01 No Known Allergies; lp1 - Home Meds: 20:01 Lisinopril Oral [Active]; Metoprolol Tartrate Oral [Active]; Metformin Oral [Active]; lp1 - PMHx: 20:01 high BP during ; Hypertension; lp1 - PSHx: 20:01 ; lp1 - Immunization history:: Adult Immunizations up to date. - Social history:: Smoking status: Patient/guardian denies using tobacco. - Ebola Screening: : No symptoms or risks identified at this time. ROS: 21:02 All other systems are negative. gs Exam: 21:02 Head/Face: Normocephalic, atraumatic. Eyes: Pupils equal round and reactive to light, gs extra-ocular motions intact. Lids and lashes normal. Conjunctiva and sclera are non-icteric and not injected. Cornea within normal limits. Periorbital areas with no swelling, redness, or edema. ENT: Nares patent. No nasal discharge, no septal abnormalities noted. Tympanic membranes are normal and external auditory canals are clear. Oropharynx with no redness, swelling, or masses, exudates, or evidence of obstruction, uvula midline. Mucous membranes moist. Neck: Trachea midline, no thyromegaly or masses palpated, and no cervical lymphadenopathy. Supple, full range of motion without nuchal rigidity, or vertebral point tenderness. No Meningismus. Chest/axilla: Normal chest wall appearance and motion. Nontender with no deformity. No lesions are appreciated. Respiratory: Lungs have equal breath sounds bilaterally, clear to auscultation and percussion. No rales, rhonchi or wheezes noted. No increased work of breathing, no retractions or nasal flaring. Abdomen/GI: Soft, non-tender, with normal bowel sounds. No distension or tympany. No guarding or rebound. No evidence of tenderness throughout. Back: No spinal tenderness. No costovertebral tenderness. Full range of motion. Skin: Warm, dry with normal turgor. Normal color with no rashes, no lesions, and no evidence of cellulitis. MS/ Extremity: Pulses equal, no cyanosis. Neurovascular intact. Full, normal range of motion. Neuro: Awake and alert, GCS 15, oriented to person, place, time, and situation. Cranial nerves II-XII grossly intact. Motor strength 5/5 in all extremities. Sensory grossly intact. Cerebellar exam normal. Normal gait. 21:02 Constitutional: The patient appears alert, awake. 21:02 Cardiovascular: Rate: tachycardic, Rhythm: regular, Pulses: no pulse deficits are appreciated, Heart sounds: normal. 21:02 ECG was reviewed by the Attending Physician. Vital Signs: 20:01 BP 179 / 133; Pulse 114; Resp 18; Temp 97.8(O); Pulse Ox 99% on R/A; Weight 103.42 kg; lp1 Height 5 ft. 7 in. (170.18 cm); Pain 0/10; 22:01 BP 162 / 115; Pulse 82; Resp 16; Temp 98.3; Pulse Ox 100% on R/A; Pain 0/10; ao 20:01 Body Mass Index 35.71 (103.42 kg, 170.18 cm) lp1 MDM: 20:26 Patient medically screened. 21:13 Differential diagnosis: hypertensive crisis, Malignant HTN. Data reviewed: vital signs, gs nurses notes. Response to treatment: the patient's symptoms have markedly improved after treatment, and as a result, I will discharge patient. 12/20 20:20 Order name: Basic Metabolic Panel; Complete Time: 21:31 12/20 20:20 Order name: CBC with Diff; Complete Time: 21: 12/20 20:20 Order name: LFT's; Complete Time: : 12/20 20:20 Order name: Magnesium; Complete Time: : 12/20 20:20 Order name: NT PRO-BNP; Complete Time: : 12/20 20:20 Order name: PT-INR; Complete Time: : 12/20 20:20 Order name: Troponin (emerg Dept Use Only); Complete Time: : 12/20 20:20 Order name: XRAY Chest (1 view); Complete Time: 20: 12/20 20:20 Order name: EKG; Complete Time: : 12/20 20:20 Order name: Cardiac monitoring; Complete Time: : 12/20 20:20 Order name: EKG - Nurse/Tech; Complete Time: : 12/20 20:20 Order name: IV Saline Lock; Complete Time: : 12/20 20:20 Order name: Labs collected and sent; Complete Time: : 12/20 20:20 Order name: O2 Per Protocol; Complete Time: : 12/20 20:20 Order name: O2 Sat Monitoring; Complete Time: 21: gs EC: Rate is 100 beats/min. Rhythm is regular. WA interval is normal. QRS interval is gs normal. QT interval is normal. T waves are Normal. No ST changes noted. Clinical impression: Abnormal EKG without significant change. Interpreted by me. Administered Medications: 20:50 Drug: Labetalol 20 mg Route: IVP; Infused Over: 2 mins; Site: left antecubital; ao 22:00 Follow up: Response: No adverse reaction ao 21:51 Drug: Metoprolol 25 mg Route: PO; ao 22:00 Follow up: Response: No adverse reaction ao 21:51 Drug: Lisinopril 20 mg Route: PO; ao 22:00 Follow up: Response: No adverse reaction ao Disposition: 12/20/18 21:35 Discharged to Home. Impression: Hypertensive heart disease. - Condition is Stable. - Discharge Instructions: Hypertension. - Prescriptions for Lisinopril 20 mg Oral Tablet - take 1 tablet by ORAL route once daily; 30 tablet. Metoprolol Tartrate 50 mg Oral Tablet - take 1 tablet by ORAL route 2 times per day take with meal; 60 tablet. Metformin 500 mg Oral Tablet - take 1 tablet by ORAL route 2 times per day . Then take 1 tablet with morning meals AND evening meals; 60 tablet. - Medication Reconciliation Form, Thank You Letter, Antibiotic Education, Prescription Opioid Use form. - Follow up: Private Physician; When: 2 - 3 days; Reason: Re-evaluation by your physician. Signatures: Dispatcher [employer] EDLinnette Shrestha RN RN lp1 London Owusu RN RN ao Indra Dorsey MD MD gs Corrections: (The following items were deleted from the chart) 22:02 21:35 12/20/2018 21:35 Discharged to Home. Impression: Hypertensive heart disease. ao Condition is Stable. Discharge Instructions: Hypertension. Prescriptions for Metformin 1,000 mg Oral Tablet - take 1 tablet by ORAL route every 12 hours with morning and evening meals; 60 tablet, Metoprolol Tartrate 50 mg Oral Tablet - take 1 tablet by ORAL route 2 times per day take with meal; 60 tablet, Lisinopril 20 mg Oral Tablet - take 1 tablet by ORAL route once daily; 30 tablet. and Forms are Medication Reconciliation Form, Thank You Letter, Antibiotic Education, Prescription Opioid Use. Follow up: Private Physician; When: 2 - 3 days; Reason: Re-evaluation by your physician. gs
[2018-12-20] MEDS ORDERED: LISINOPRIL 20 MG TAB ONE (21:56)
[2018-12-20] MEDS ORDERED: METOPROLOL TAR 25 MG TAB ONE (21:56)
[2018-12-20 23:34] VITALS: BP 162/115; TEMP 98.3; O2SAT 100
--- NOTE | 2018-12-21 07:47 | EKG ---
Test Date: 2018-12-20 Test Time: 20:38:01 Lead Burner Helper: LUZ MARINA MEASUREMENT RESULTS: Intervals: Rate: 99 MN: 154 QRSD: 76 QT: 346 QTc: 444 [place]: P: 26 MN: 154 QRS: 4 T: 60 INTERPRETIVE STATEMENTS: Normal sinus rhythm Voltage criteria for left ventricular hypertrophy Abnormal ECG Compared to ECG 10/24/2018 18:04:42 No significant changes Electronically Signed On 12-21-18 07:47:32 [employer]ELD [employer]PER[employer] MAN by Yosvany Molina
== END 2018-12-20 22:02 | disposition home or self-care (01) ==
LOC: ER 19:31
DX: I11.9 Hypertensive heart disease without heart failure (principal)
CPT/HCPCS: 36415; 71045; 80048; 80076; 83735; 83880; 84484; 85025; 85610; 93005; 96374; 99283

== ENCOUNTER 2019-01-20 14:04 | Emergency (ER) | payer SELFPAY ==
[2019-01-20] MEDS ORDERED: HYDROCODONE/APAP 10/325 TAB ONE (15:51)
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
[2019-01-20 17:10] VITALS: TEMP 97.8; O2SAT 99
[2019-01-20 17:11] VITALS: BP 152/106
== END 2019-01-20 16:57 | disposition home or self-care (01) ==
LOC: ER 14:04
DX: S16.1XXA Strain of muscle, fascia and tendon at neck level, initial encounter (principal); V49.50XA Passenger injured in collision with unspecified motor vehicles in traffic accident, initial encounter; I10 Essential (primary) hypertension; F41.9 Anxiety disorder, unspecified
CPT/HCPCS: 99283

== ENCOUNTER 2020-12-01 16:16 | Emergency (ER) | payer SELFPAY ==
[2020-12-01] MEDS ORDERED: METHYLPREDNISOLONE 125 MG INJ ONE (17:52)
[2020-12-01] MEDS ORDERED: WATER FOR INJ,STERILE 10 ML ONE (17:53)
[2020-12-01] MEDS ORDERED: AZITHROMYCIN 500 MG INJ IVPB ONE (17:53)
[2020-12-01] MEDS ORDERED: NA CHLORIDE 0.9% 250 ML ONE (17:53)
[2020-12-01] MEDS ORDERED: lisinopriL 5 MG TAB ONE (17:53)
[2020-12-01] MEDS ORDERED: NA CHLORIDE 0.9% 1,000 ML ONE ×2 (17:53→19:40)
[2020-12-01 18:17] LABS: Absolute Lymphocytes (CBC) 0.9 K/uL (0.7-4.9); Basophils % 0.3 % (0-1.3); Hematocrit 42.4 % (36.0-45.0); MPV 8.6 fL (7.6-11.3); RBC Red Blood Cell Count 5.25 M/uL (3.86-4.86)
[2020-12-01 18:20] LABS: ALT/SGPT 195 U/L (12-78); AST/SGOT 126 U/L (15-37); Alkaline Phosphatase 128 U/L (45-117); BUN Blood Urea Nitrogen 13 mg/dL (7-18); Bicarbonate 22 mmol/L (21-32); Bilirubin Direct 0.1 mg/dL (0-0.2); Bilirubin Total 0.5 mg/dL (0.2-1.0); Glucose Level 201 mg/dL (74-106); Potassium 3.6 mmol/L (3.5-5.1); Protein, Total 8.5 g/dL (6.4-8.2); Sodium Level 136 mmol/L (136-145)
--- NOTE | 2020-12-01 18:38 | RAD REPORT ---
EXAM DESCRIPTION: Vito Single View12/01/2020 6:09 pm CLINICAL HISTORY: Congestion COMPARISON: 2019 FINDINGS: The lungs appear clear of acute infiltrate. The heart is normal size IMPRESSION: No acute abnormalities displayed
--- NOTE | 2020-12-01 18:48 | ER ---
Nurse's Notes [facility] Name: Maren Woodard Age: 35 yrs Sex: Female : 1985 Arrival Date: 12/01/2020 Time: 16:19 Bed 7 Private MD: Diagnosis: Acute bronchitis Presentation: 12/01 16:40 Chief complaint: Patient states: Cough, SOB, fatigue, loss of taste since . ll1 Coronavirus screen: Client denies travel out of the [place] in the last 14 days. congestion, cough unrelated to allergies, difficulty breathing, fatigue, loss of taste or smell, Client presents with at least one sign or symptom that may indicate coronavirus-19. Standard/surgical mask placed on the client. Ebola Screen: Patient denies travel to an Ebola-affected area in the 21 days before illness onset. Initial Sepsis Screen: Does the patient meet any 2 criteria? HR > 90 bpm. Does the patient have a suspected source of infection? Yes: Productive cough/pneumonia. Risk Assessment: Do you want to hurt yourself or someone else? Patient reports no desire to harm self or others. Onset of symptoms was November 28, 2020. 16:40 Method Of Arrival: Ambulatory ll1 16:40 Acuity: CEDRICK 2 ll1 Historical: - Allergies: 16:40 No Known Allergies; ll1 - PMHx: 16:40 Hypertension; Anxiety; Diabetes - NIDDM; ll1 - PSHx: 16:40 ; ll1 - Immunization history:: Flu vaccine is not up to date. - Social history:: Smoking status: Patient denies any tobacco usage or history of. Patient/guardian denies using alcohol, street drugs, The patient lives with family. - Family history:: not pertinent. Screenin:50 Abuse screen: Denies threats or abuse. Denies injuries from another. Nutritional sv screening: No deficits noted. Tuberculosis screening: No symptoms or risk factors identified. Fall Risk None identified. Assessment: 17:50 General: Appears in no apparent distress. comfortable, well groomed, well developed, sv Behavior is calm, cooperative, appropriate for age. General: Reports fatigue for 2-3 days. Pain: Denies pain. Neuro: Level of Consciousness is awake, alert, obeys commands, Oriented to person, place, time, situation, Moves all extremities. Full function. Cardiovascular: Patient's skin is warm and dry. Rhythm is sinus tachycardia. Respiratory: Reports shortness of breath on exertion cough that is non-productive, Airway is patent Respiratory effort is even, unlabored, Respiratory pattern is regular, symmetrical. Derm: Skin is intact, Skin is pink, warm \T\ dry. Musculoskeletal: Circulation, motion, and sensation intact. Range of motion: intact in all extremities. 17:57 Reassessment: Lactate Cancelled per Dr. Adhikari. ss 18:57 Reassessment: Pt waiting for her COVID result before discharge. sv 19:10 Reassessment: Patient appears in no apparent distress at this time. Patient and/or jb4 family updated on plan of care and expected duration. Pain level reassessed. Patient is alert, oriented x 3, equal unlabored respirations, skin warm/dry/pink. 19:29 Reassessment: Provider notified of continuous elevated heart rate, given verbal order jb4 for 1L bolus of NS. D/c pending completion of IV fluids. 20:28 Reassessment: Patient appears in no apparent distress at this time. Patient and/or jb4 family updated on plan of care and expected duration. Pain level reassessed. Patient is alert, oriented x 3, equal unlabored respirations, skin warm/dry/pink. Patient states feeling better. Vital Signs: 16:40 BP 242 / 146; Pulse 132; Resp 18; Temp 99.0; Pulse Ox 96% on R/A; Weight 96.16 kg; ll1 Height 5 ft. 7 in. (170.18 cm); Pain 0/10; 17:25 BP 174 / 144; Pulse 122; Pulse Ox 98% on R/A; ss 18:02 BP 213 / 130; Pulse 126 MON; Resp 20; Pulse Ox 100% on R/A; sv 19:00 BP 193 / 131; Pulse 120 MON; Resp 22; Pulse Ox 95% on R/A; jb4 20:00 BP 173 / 109; Pulse 111; Resp 19; Pulse Ox 100% on R/A; jb4 16:40 Body Mass Index 33.20 (96.16 kg, 170.18 cm) ll1 18:02 Sinus tachycardia sv 18:02 Pt stated that she hasn't taken her BP med at home because she hasn't been able to pick sv it up. ED Course: 16:19 Patient arrived in ED. mr 16:39 Arm band placed on. ll1 16:44 Triage completed. ll1 17:17 Nicolas Adhikari MD is Attending Physician. ma2 17:30 Jewels Yang, RN is Primary Nurse. sv 17:50 Patient has correct armband on for positive identification. Placed in gown. Bed in low sv position. Call light in reach. court monitor on. Pulse ox on. NIBP on. Door closed. Head of bed elevated. 17:50 Inserted saline lock: 20 gauge in right wrist, using aseptic technique. Blood sv collected. Flushed right with 5 ml normal saline. 18:03 X-ray(s) taken. sv 18:09 CXR XRAY In Process Unspecified. EDMS 19:02 Primary Nurse role handed off by Jewels Yang, RN sv 19:02 Report given to Josué BARNHART and Wilberto BARNHART. sv 19:29 Mars Muhammad, RN is Primary Nurse. jb4 20:33 No provider procedures requiring assistance completed. IV discontinued, intact, jb4 bleeding controlled, No redness/swelling at site. Pressure dressing applied. Administered Medications: 17:58 Drug: NS 0.9% 1000 ml Route: IV; Rate: 1 bolus; Site: right wrist; sv 17:58 Drug: MethylPrednisoLONE 125 mg Route: IVP; Site: right wrist; sv 18:33 Follow up: Response: No adverse reaction sv 18:00 Drug: Lisinopril 5 mg Route: PO; sv 18:33 Follow up: Response: No adverse reaction sv 18:01 Drug: AZITHromycin 500 mg Route: IVPB; Infused Over: 1 hrs; Site: right wrist; sv 19:30 Drug: NS 0.9% 1000 ml Route: IV; Rate: 1 bolus; Site: right wrist; jb4 20:34 Follow up: Response: No adverse reaction; Marked relief of symptoms; IV Status: jb4 Completed infusion; IV Intake: 1000ml Intake: 20:34 IV: 1000ml; Total: 1000ml. jb4 Outcome: 18:47 Discharge ordered by . ma2 20:33 Discharged to home ambulatory. jb4 20:33 Condition: stable 20:33 Discharge instructions given to patient, Instructed on discharge instructions, follow up and referral plans. medication usage, Demonstrated understanding of instructions, follow-up care, medications, Prescriptions given X 6 20:34 Patient left the ED. jb4 Signatures: Dispatcher [employer] EDMS Jewels Yang, RN RN [facility] mr Rebeca Mohan RN RN ss Bryson, James, RN RN jb4 Nicolas Adhikari MD MD ma2 Srinath Sanchez RN RN ll1
--- NOTE | 2020-12-01 18:48 | EDPHYS ---
Physician Documentation [facility] Name: Maren Woodard Age: 35 yrs Sex: Female : 1985 Arrival Date: 12/01/2020 Time: 16:19 Bed 7 Private MD: ED Physician Nicolas Adhikari HPI: 12/01 17:50 This 35 yrs old Female presents to ER via Ambulatory with complaints of sore ma2 throat and cough . 17:50 The patient has shortness of breath during heavy activity. Onset: The symptoms/episode ma2 began/occurred gradually, 1 week(s) ago. 17:51 Associated signs and symptoms: Pertinent negatives: diaphoresis, fever, hemoptysis, ma2 numbness in extremities. Severity of symptoms: At their worst the symptoms were mild in the emergency department the symptoms are unchanged. The patient has not experienced similar symptoms in the past. patient has htn, out of his meds for months, used to be on lisinprol. Historical: - Allergies: 16:40 No Known Allergies; ll1 - PMHx: 16:40 Hypertension; Anxiety; Diabetes - NIDDM; ll1 - PSHx: 16:40 ; ll1 - Immunization history:: Flu vaccine is not up to date. - Social history:: Smoking status: Patient denies any tobacco usage or history of. Patient/guardian denies using alcohol, street drugs, The patient lives with family. - Family history:: not pertinent. ROS: 17:51 Constitutional: Negative for fever, chills, and weight loss. ma2 17:51 All other systems are negative. Exam: 17:51 Constitutional: This is a well developed, well nourished patient who is awake, alert, ma2 and in no acute distress. Head/Face: Normocephalic, atraumatic. Eyes: Pupils equal round and reactive to light, extra-ocular motions intact. Lids and lashes normal. Conjunctiva and sclera are non-icteric and not injected. Cornea within normal limits. Periorbital areas with no swelling, redness, or edema. ENT: Nares patent. No nasal discharge, no septal abnormalities noted. Tympanic membranes are normal and external auditory canals are clear. Oropharynx with no redness, swelling, or masses, exudates, or evidence of obstruction, uvula midline. Mucous membranes moist. Neck: Trachea midline, no thyromegaly or masses palpated, and no cervical lymphadenopathy. Supple, full range of motion without nuchal rigidity, or vertebral point tenderness. No Meningismus. Chest/axilla: Normal chest wall appearance and motion. Nontender with no deformity. No lesions are appreciated. Cardiovascular: rate is 110, redular rhythm with a normal S1 and S2. No gallops, murmurs, or rubs. Normal PMI, no JVD. No pulse deficits. Respiratory: Lungs have equal breath sounds bilaterally, clear to auscultation and percussion. No rales, rhonchi or wheezes noted. No increased work of breathing, no retractions or nasal flaring. Abdomen/GI: Soft, non-tender, with normal bowel sounds. No distension or tympany. No guarding or rebound. No evidence of tenderness throughout. Back: No spinal tenderness. No costovertebral tenderness. Full range of motion. Skin: Warm, dry with normal turgor. Normal color with no rashes, no lesions, and no evidence of cellulitis. MS/ Extremity: Pulses equal, no cyanosis. Neurovascular intact. Full, normal range of motion. Neuro: Awake and alert, GCS 15, oriented to person, place, time, and situation. Cranial nerves II-XII grossly intact. Motor strength 5/5 in all extremities. Sensory grossly intact. Cerebellar exam normal. Normal gait. Vital Signs: 16:40 BP 242 / 146; Pulse 132; Resp 18; Temp 99.0; Pulse Ox 96% on R/A; Weight 96.16 kg; ll1 Height 5 ft. 7 in. (170.18 cm); Pain 0/10; 17:25 BP 174 / 144; Pulse 122; Pulse Ox 98% on R/A; ss 18:02 BP 213 / 130; Pulse 126 MON; Resp 20; Pulse Ox 100% on R/A; sv 19:00 BP 193 / 131; Pulse 120 MON; Resp 22; Pulse Ox 95% on R/A; jb4 20:00 BP 173 / 109; Pulse 111; Resp 19; Pulse Ox 100% on R/A; jb4 16:40 Body Mass Index 33.20 (96.16 kg, 170.18 cm) ll1 18:02 Sinus tachycardia sv 18:02 Pt stated that she hasn't taken her BP med at home because she hasn't been able to pick sv it up. MDM: 17:23 Patient medically screened. ma2 17:51 Differential diagnosis: Anemia Bronchitis pneumonia, Psychogenic reactive airway ma2 disease. Data reviewed: vital signs. 18:47 Counseling: I had a detailed discussion with the patient and/or guardian regarding: the pa2 historical points, exam findings, and any diagnostic results supporting the discharge/admit diagnosis, the presence of at least one elevated blood pressure reading (>120/80) during this emergency department visit, the need for outpatient follow up. 12/01 17:33 Order name: BMP; Complete Time: 18:46 [facility] 12/01 17:33 Order name: CBC with Diff; Complete Time: 18:46 [facility] 12/01 17:33 Order name: LFT's; Complete Time: 18:46 [facility] 12/01 17:33 Order name: CXR XRAY; Complete Time: 18:46 [facility] 12/01 17:33 Order name: Droplet/Contact Precautions; Complete Time: 17:33 [facility] 12/01 17:33 Order name: EKG - Nurse/Tech; Complete Time: 17:50 [facility] 12/01 17:33 Order name: IV Start; Complete Time: 18:00 [facility] 12/01 17:33 Order name: Labs collected and sent; Complete Time: 18:00 [facility] 12/01 17:33 Order name: O2 Per Protocol; Complete Time: 18:00 [facility] 12/01 17:33 Order name: O2 Sat Monitoring; Complete Time: 18:01 [facility] 12/01 19:13 Order name: COVID-19/FLU A+B; Complete Time: 22:47 EDMS Administered Medications: 17:58 Drug: NS 0.9% 1000 ml Route: IV; Rate: 1 bolus; Site: right wrist; sv 17:58 Drug: MethylPrednisoLONE 125 mg Route: IVP; Site: right wrist; sv 18:33 Follow up: Response: No adverse reaction sv 18:00 Drug: Lisinopril 5 mg Route: PO; sv 18:33 Follow up: Response: No adverse reaction sv 18:01 Drug: AZITHromycin 500 mg Route: IVPB; Infused Over: 1 hrs; Site: right wrist; sv 19:30 Drug: NS 0.9% 1000 ml Route: IV; Rate: 1 bolus; Site: right wrist; jb4 20:34 Follow up: Response: No adverse reaction; Marked relief of symptoms; IV Status: jb4 Completed infusion; IV Intake: 1000ml Disposition: 12/01/20 18:47 Discharged to Home. Impression: Acute bronchitis. - Condition is Stable. - Discharge Instructions: Acute Bronchitis, Adult. - Prescriptions for Lisinopril 5 mg Oral Tablet - take 1 tablet by ORAL route once daily; 120 tablet. Diclofenac Sodium 75 mg Oral Tablet Sustained Release - take 1 tablet by ORAL route 2 times per day; 30 tablet. Zithromax Z- Emerson 250 mg Oral Tablet - take 1 tablet by ORAL route as directed for 5 days Day 1 - take two (2) tablets one time. Day 2, 3, 4 , 5 take one (1) tablet once daily.; 6 tablet. Medrol (Emerson) 4 mg Oral Tablets, Dose Pack - take 1 tablet by ORAL route as directed - follow package instructions; 1 packet. Albuterol Sulfate 90 mcg/actuation - inhale 1-2 puff by INHALATION route every 4-6 hours; 1 Inhaler. Tessalon Perles 100 mg Oral Capsule - take 1 capsule by ORAL route every 8 hours As needed; 15 capsule. - Medication Reconciliation Form, Thank You Letter, Antibiotic Education, Prescription Opioid Use form. - Follow up: Private Physician; When: Tomorrow; Reason: If symptoms return. Addendum: 01/09/2021 22:47 Addendum: covid result positive . m a2 Signatures: Dispatcher [employer] EDJewels Rocha RN RN sv Bryson, James, RN RN jb4 Nicolas Adhikari MD MD ma2 Srinath Sanchez RN RN ll1 Corrections: (The following items were deleted from the chart) 12/01 17:58 17:35 LACTATE+C.LAB.BRZ ordered. EDMS EDMS 18:20 17:35 Influenza Screen (A \T\ B)+BA.LAB.BRZ ordered. EDMS EDMS 18:20 17:35 CORONAVIRUS+MR.LAB.BRZ ordered. EDMS EDMS 20:34 18:47 12/01/2020 18:47 Discharged to Home. Impression: Acute bronchitis. Condition is jb4 Stable. Prescriptions for Lisinopril 5 mg Oral Tablet - take 1 tablet by ORAL route once daily; 120 tablet, Diclofenac Sodium 75 mg Oral Tablet Sustained Release - take 1 tablet by ORAL route 2 times per day; 30 tablet, Zithromax Z-Emerson 250 mg Oral Tablet - take 1 tablet by ORAL route as directed for 5 days Day 1 - take two (2) tablets one time. Day 2, 3, 4 , 5 take one (1) tablet once daily.; 6 tablet, Medrol (Emerson) 4 mg Oral Tablets, Dose Pack - take 1 tablet by ORAL route as directed - follow package instructions; 1 packet, Albuterol Sulfate 90 mcg/actuation - inhale 1-2 puff by INHALATION route every 4-6 hours; 1 Inhaler. and Forms are Medication Reconciliation Form, Thank You Letter, Antibiotic Education, Prescription Opioid Use. Follow up: Private Physician; When: Tomorrow; Reason: If symptoms return. ma2
[2020-12-01 19:12] LABS: SARS-COV-2 RT PCR POSITIVE (NEGATIVE)
[2020-12-01 21:26] VITALS: TEMP 99
[2020-12-01 21:28] VITALS: O2SAT 100
[2020-12-01 21:32] VITALS: BP 173/109
== END 2020-12-01 20:34 | disposition home or self-care (01) ==
LOC: ER 16:16
DX: U07.1 COVID-19 (principal); J20.8 Acute bronchitis due to other specified organisms
CPT/HCPCS: 0240U; 36415; 71045; 80048; 80076; 85025; 93005; 96361; 96374; 96375; 99284; J0456; J2930; J7030; J7050

== ENCOUNTER 2020-12-10 15:23 | Inpatient (IN) | payer SELFPAY ==
--- NOTE | 2020-12-10 18:30 | ER ---
Nurse's Notes [facility] Name: Maren Woodard Age: 35 yrs Sex: Female : 1985 Arrival Date: 12/10/2020 Time: 15:26 Bed 19 Private MD: Diagnosis: Hypoxemia;SARS-associated coronavirus as the cause of diseases classified elsewhere-covid 19;Essential (primary) hypertension;Other viral pneumonia-covid 19;Type 2 diabetes mellitus Presentation: 12/10 15:37 Chief complaint: Patient states: SOB with exertion since Wednesday. Covid positive for 10 ll1 days. Fever at home last night. Not eating well. Coronavirus screen: Client denies travel out of the [place] in the last 14 days. congestion, cough unrelated to allergies, difficulty breathing, fatigue, fever, Client presents with at least one sign or symptom that may indicate coronavirus-19. Client reports previous positive COVID test result. Ebola Screen: Patient denies travel to an Ebola-affected area in the 21 days before illness onset. Initial Sepsis Screen: Does the patient meet any 2 criteria? HR > 90 bpm. No. Patient's initial sepsis screen is negative. Does the patient have a suspected source of infection? Yes: Productive cough/pneumonia. Risk Assessment: Do you want to hurt yourself or someone else? Patient reports no desire to harm self or others. Onset of symptoms was November 30, 2020. 15:37 Method Of Arrival: Ambulatory ll1 15:37 Acuity: CEDRICK 2 ll1 Historical: - Allergies: 15:37 No Known Allergies; ll1 - PMHx: 15:37 Hypertension; Diabetes - NIDDM; Anxiety; ll1 - PSHx: 15:37 ; ll1 - Immunization history:: Flu vaccine is not up to date. - Social history:: Smoking status: Patient denies any tobacco usage or history of. - Family history:: not pertinent. Screenin:22 Abuse screen: Denies threats or abuse. Denies injuries from another. Nutritional ph screening: No deficits noted. Tuberculosis screening: No symptoms or risk factors identified. Fall Risk None identified. Assessment: 18:30 General: Appears in no apparent distress. comfortable, well groomed, Behavior is calm, ph cooperative, appropriate for age. Pain: Complains of pain in back and chest. Neuro: Level of Consciousness is awake, alert, obeys commands, Oriented to person, place, time, situation. Cardiovascular: Capillary refill < 3 seconds in bilateral fingers Patient's skin is warm and dry. Respiratory: Airway is patent Respiratory effort is even, unlabored, Respiratory pattern is tachypnea. Respiratory: Reports shortness of breath at rest cough that is. GI: Patient currently denies abdominal pain, diarrhea, nausea, vomiting. Derm: Skin is intact, is healthy with good turgor, Skin is pink, warm \T\ dry. Musculoskeletal: Circulation, motion, and sensation intact. Range of motion: intact in all extremities. 18:50 Reassessment: Patient appears in no apparent distress at this time. Pt became nauseous ph and actively vomiting after IVP Rocephin, ERP notified, Zofran given. 19:15 General: Appears in no apparent distress. comfortable, Behavior is calm, cooperative, sf appropriate for age. Neuro: No deficits noted. Level of Consciousness is awake, alert, obeys commands, Oriented to person, place, time, situation, Appropriate for age. Cardiovascular: Denies chest pain, palpitations, Capillary refill < 3 seconds Rhythm is sinus tachycardia. Respiratory: Reports shortness of breath at rest cough that is Airway is patent Respiratory effort is even, unlabored, Respiratory pattern is regular, symmetrical. GI: Patient currently denies abdominal pain, diarrhea, nausea. Derm: Skin is intact, Skin is clammy, Skin is normal. 22:02 Reassessment: Patient appears in no apparent distress at this time. No changes from sf previously documented assessment. Patient and/or family updated on plan of care and expected duration. Pain level reassessed. Patient is alert, oriented x 3, equal unlabored respirations, skin warm/dry/pink. Vital Signs: 15:37 BP 156 / 106; Pulse 115; Resp 20; Temp 97.2; Weight 96.16 kg; Height 5 ft. 7 in. ll1 (170.18 cm); Pain 0/10; 15:42 Pulse Ox 90% on R/A; ll1 15:47 Pulse Ox 92% on 4 lpm NC; ll1 17:45 BP 111 / 89; Pulse 108; Resp 22; Pulse Ox 91% on 4 lpm NC; ph 18:30 BP 130 / 94; Pulse 111; Resp 20; Pulse Ox 93% on 4 lpm NC; ph 19:30 BP 116 / 72; Pulse 104; Resp 18; Pulse Ox 92% ; sf 22:03 BP 146 / 98; Pulse 95; Resp 18; Pulse Ox 97% ; sf 15:37 Body Mass Index 33.20 (96.16 kg, 170.18 cm) ll1 ED Course: 15:26 Patient arrived in ED. as 15:37 Arm band placed on. ll1 15:40 Triage completed. ll1 17:52 Mo Howard MD is Attending Physician. matthew 18:05 Maryanne Tan, RN is Primary Nurse. ph 18:28 Misael Medrano is Hospitalizing Provider. matthew 18:30 Initial lab(s) drawn, by wi, sent to lab. Inserted saline lock: 22 gauge in right ph antecubital area, using aseptic technique. Blood collected. 18:38 XRAY Chest (1 view) In Process Unspecified. EDMS 19:20 Patient admitted, IV remains in place. ph 19:22 Primary Nurse role handed off by Maryanne Tan RN mw2 19:22 Patient has correct armband on for positive identification. Placed in gown. Bed in low ph position. Call light in reach. Side rails up X 1. Pulse ox on. NIBP on. Door closed. Noise minimized. Warm blanket given. 19:22 No provider procedures requiring assistance completed. ph 19:30 Martin Beasley, OBEY is Primary Nurse. sf 19:33 Door closed. Noise minimized. Lights dimmed. Turned to right side. Pillow placed under sf right arm to help keep IV infusion flowing. 19:39 Basic Metabolic Panel Sent. sf 19:40 CBC with Diff Sent. sf 19:40 LFT's Sent. sf 19:40 Magnesium Sent. sf 19:40 NT PRO-BNP Sent. sf 19:54 EKG done, by ED staff. sf 19:59 Chest For PE Angio CT Sent. sf 20:08 Chest For PE Angio CT In Process Unspecified. EDMS 22:02 No provider procedures requiring assistance completed. Patient admitted, IV remains in sf place. Administered Medications: 18:35 Drug: NS 0.9% 500 ml Route: IV; Rate: bolus; Site: right antecubital; ph 19:24 Follow up: Response: No adverse reaction; IV Status: Completed infusion; IV Intake: ph 500ml 18:40 Drug: Pepcid 20 mg Route: IVP; Site: right antecubital; ph 19:29 Follow up: Response: No adverse reaction ph 18:40 Drug: Aspirin Chewable Tablet 324 mg Route: PO; ph 19:26 Follow up: Response: No adverse reaction ph 18:40 Drug: Decadron - Dexamethasone 10 mg Route: IVP; Site: right antecubital; ph 19:25 Follow up: Response: No adverse reaction ph 18:45 Drug: Albuterol HFA Inhaler 4 puffs Route: Inhalation; ph 19:25 Follow up: Response: No adverse reaction ph 18:55 Drug: Rocephin 1 grams Route: IV; Rate: per protocol; Site: right antecubital; ph 19:26 Follow up: Response: Other; IV Status: Completed infusion; Nausea/vomiting after IVP ph 18:55 Drug: Zithromax 500 mg Route: IVPB; Infused Over: 1 hrs; Site: right antecubital; ph 21:45 Follow up: Response: No adverse reaction; IV Status: Completed infusion; IV Intake: sf 250ml 18:57 Drug: Zofran (Ondansetron) 4 mg Route: IVP; Site: right antecubital; ph 19:24 Follow up: Response: No adverse reaction ph 19:23 Drug: NS 0.9% 1000 ml Route: IV; Rate: 125 ml/hr; Site: right antecubital; ph 19:24 Follow up: Response: No adverse reaction; IV Status: Infusion continued upon admission ph 19:23 Drug: Ivermectin 12 mg Route: PO; ph 19:24 Follow up: Response: No adverse reaction ph Intake: 19:24 IV: 500ml; Total: 500ml. ph 21:45 IV: 250ml; Total: 750ml. sf Outcome: 18:29 Decision to Hospitalize by Provider. matthew 22:12 Admitted to Tele accompanied by tech, via stretcher, room 408, with oxygen, Report sf called to OBEY Tolentino 22:12 Condition: stable 22:35 Patient left the ED. mw2 Signatures: Dispatcher [employer] EDMo Dao MD MD cha Martinez, Amelia as Hall, Patricia, RN RN Nati Coronado mw2 Srinath Sanchez RN RN [facility] Martin Beasley RN RN sf Corrections: (The following items were deleted from the chart) 15:47 15:37 Acuity: CEDRICK 3 ll1 ll1
--- NOTE | 2020-12-10 18:30 | EDPHYS ---
Physician Documentation [facility] Name: Maren Woodard Age: 35 yrs Sex: Female : 1985 Arrival Date: 12/10/2020 Time: 15:26 Bed 19 Private MD: ARON Physician Mo Howard HPI: 12/10 18:23 This 35 yrs old Female presents to ER via Ambulatory with complaints of covid matthew pneumonia. 18:23 The patient has shortness of breath at rest, with light activity. Onset: The matthew symptoms/episode began/occurred 3 day(s) ago. Duration: The symptoms are continuous, and are steadily getting worse. The patient's shortness of breath is aggravated by coughing, exertion, light activity, supine position. Associated signs and symptoms: Pertinent positives: non-productive cough. Severity of symptoms: At their worst the symptoms were moderate in the emergency department the symptoms are unchanged. The patient or guardian reports airway noise, cough, described as mild, difficulty breathing, flu symptoms, arthralgias, myalgias. Severity of symptoms: At their worst the symptoms were mild, moderate, in the emergency department the symptoms are unchanged. Modifying factors: The symptoms are alleviated by cool environment. Associated signs and symptoms: Pertinent positives: rhinorrhea, sore throat. Historical: - Allergies: 15:37 No Known Allergies; ll1 - PMHx: 15:37 Hypertension; Diabetes - NIDDM; Anxiety; ll1 - PSHx: 15:37 ; ll1 - Immunization history:: Flu vaccine is not up to date. - Social history:: Smoking status: Patient denies any tobacco usage or history of. - Family history:: not pertinent. ROS: 18:23 Constitutional: Negative for fever, chills, and weight loss, Eyes: Negative for injury, matthew pain, redness, and discharge, ENT: Negative for injury, pain, and discharge, Neck: Negative for injury, pain, and swelling, Abdomen/GI: Negative for abdominal pain, nausea, vomiting, diarrhea, and constipation, Back: Negative for injury and pain, : Negative for injury, bleeding, discharge, and swelling, MS/Extremity: Negative for injury and deformity, Skin: Negative for injury, rash, and discoloration, Neuro: Negative for headache, weakness, numbness, tingling, and seizure, Psych: Negative for depression, anxiety, suicide ideation, homicidal ideation, and hallucinations, Allergy/Immunology: Negative for hives, rash, and allergies, Endocrine: Negative for neck swelling, polydipsia, polyuria, polyphagia, and marked weight changes, Hematologic/Lymphatic: Negative for swollen nodes, abnormal bleeding, and unusual bruising. 18:23 Cardiovascular: 18:23 Respiratory: Positive for cough, shortness of breath, at rest. Exam: 18:23 Constitutional: This is a well developed, well nourished patient who is awake, alert, matthew and in no acute distress. Head/Face: Normocephalic, atraumatic. Eyes: Pupils equal round and reactive to light, extra-ocular motions intact. Lids and lashes normal. Conjunctiva and sclera are non-icteric and not injected. Cornea within normal limits. Periorbital areas with no swelling, redness, or edema. ENT: Nares patent. No nasal discharge, no septal abnormalities noted. Tympanic membranes are normal and external auditory canals are clear. Oropharynx with no redness, swelling, or masses, exudates, or evidence of obstruction, uvula midline. Mucous membranes moist. Neck: Trachea midline, no thyromegaly or masses palpated, and no cervical lymphadenopathy. Supple, full range of motion without nuchal rigidity, or vertebral point tenderness. No Meningismus. Chest/axilla: Normal chest wall appearance and motion. Nontender with no deformity. No lesions are appreciated. Abdomen/GI: Soft, non-tender, with normal bowel sounds. No distension or tympany. No guarding or rebound. No evidence of tenderness throughout. Back: No spinal tenderness. No costovertebral tenderness. Full range of motion. Female : Normal external genitalia. Skin: Warm, dry with normal turgor. Normal color with no rashes, no lesions, and no evidence of cellulitis. MS/ Extremity: Pulses equal, no cyanosis. Neurovascular intact. Full, normal range of motion. Neuro: Awake and alert, GCS 15, oriented to person, place, time, and situation. Cranial nerves II-XII grossly intact. Motor strength 5/5 in all extremities. Sensory grossly intact. Cerebellar exam normal. Normal gait. 18:23 Cardiovascular: Rate: tachycardic, Rhythm: regular, Pulses: Pulses are 4+ in bilateral radial, brachial, femoral, popliteal, posterior tibial and and dorsalis pedis arteries.. Heart sounds: normal, Edema: is not appreciated, JVD: is not appreciated. 18:23 Respiratory: mild respiratory distress is noted, Respirations: labored breathing, that is mild, Breath sounds: decreased breath sounds, rhonchi, that are mild, are scattered, stridor, is not appreciated, Respiratory rate: 20 Vital Signs: 15:37 BP 156 / 106; Pulse 115; Resp 20; Temp 97.2; Weight 96.16 kg; Height 5 ft. 7 in. ll1 (170.18 cm); Pain 0/10; 15:42 Pulse Ox 90% on R/A; ll1 15:47 Pulse Ox 92% on 4 lpm NC; ll1 17:45 BP 111 / 89; Pulse 108; Resp 22; Pulse Ox 91% on 4 lpm NC; ph 18:30 BP 130 / 94; Pulse 111; Resp 20; Pulse Ox 93% on 4 lpm NC; ph 19:30 BP 116 / 72; Pulse 104; Resp 18; Pulse Ox 92% ; sf 22:03 BP 146 / 98; Pulse 95; Resp 18; Pulse Ox 97% ; sf 15:37 Body Mass Index 33.20 (96.16 kg, 170.18 cm) ll1 MDM: 17:52 Patient medically screened. matthew 18:35 Differential diagnosis: asthma, Bronchitis CHF exacerbation, Chronic Obstructive matthew Pulmonary Disease pneumonia, pulmonary edema, Pulmonary Embolism reactive airway disease, Sepsis. Antibiotic administration: Rocephin and Zithromax given. The patient's Wells Deep Vein Thrombosis Score was calculated as follows: Heart Rate >100 BPM (1.5 Pts) Total Score: 0-2 Pts- Low Risk. Differential Diagnosis: Bronchitis Influenza Upper Respiratory Infection Sinusitis Asthma Exacerbation Viral Syndrome Pneumonia. The patient's pulmonary embolism risk score was calculated as follows: the patients heart rate is greater than 100 beats per minute (1.5 Pts) Total Score: 0-2 points. This patient was found to be at low risk for a pulmonary embolism by using the Well's assessment criteria. Immunization status:. Data reviewed: vital signs, nurses notes, lab test result(s), EKG, radiologic studies, plain films. Data interpreted: media monitor: rate is 115 beats/min, rhythm is regular, Pulse oximetry: on room air is 85 %. Test interpretation: by ED physician or midlevel provider: ECG, plain radiologic studies. Counseling: I had a detailed discussion with the patient and/or guardian regarding: the historical points, exam findings, and any diagnostic results supporting the discharge/admit diagnosis, the presence of at least one elevated blood pressure reading (>120/80) during this emergency department visit, lab results, the need for further work-up and treatment in the hospital. 12/10 18:03 Order name: Basic Metabolic Panel [facility] 12/10 18:03 Order name: CBC with Diff [facility] 12/10 18:03 Order name: LFT's [facility] 12/10 18:03 Order name: Magnesium [facility] 12/10 18:03 Order name: NT PRO-BNP [facility] 12/10 18:03 Order name: PT-INR; Complete Time: 20:11 [facility] 12/10 18:03 Order name: Troponin (emerg Dept Use Only); Complete Time: 20:11 [facility] 12/10 18:03 Order name: Blood Culture Adult (2) [facility] 12/10 18:03 Order name: CRP; Complete Time: 20:11 [facility] 12/10 18:03 Order name: Ferritin; Complete Time: 20:11 [facility] 12/10 18:04 Order name: Basic Metabolic Panel; Complete Time: 20:11 [facility] 12/10 18:04 Order name: CBC with Automated Diff; Complete Time: 20:11 [facility] 12/10 18:04 Order name: Liver (Hepatic) Function; Complete Time: 20:11 [facility] 12/10 18:04 Order name: Magnesium; Complete Time: 20:11 [facility] 12/10 18:03 Order name: XRAY Chest (1 view); Complete Time: 19:08 [facility] 12/10 18:03 Order name: EKG; Complete Time: 18:04 [facility] 12/10 18:03 Order name: Cardiac monitoring; Complete Time: 19:35 [facility] 12/10 18:03 Order name: Chest For PE Angio CT [facility] 12/10 18:04 Order name: NT PRO-BNP; Complete Time: 20:11 [facility] 12/10 21:19 Order name: CONS Physician Consult [facility] 12/10 18:03 Order name: EKG - Nurse/Tech; Complete Time: 19:58 [facility] 12/10 18:03 Order name: IV Saline Lock; Complete Time: 19:26 [facility] 12/10 18:03 Order name: Labs collected and sent; Complete Time: 19: [facility] 12/10 18:03 Order name: O2 Per Protocol; Complete Time: 19: [facility] 12/10 18:03 Order name: O2 Sat Monitoring; Complete Time: : [facility] Administered Medications: 18:35 Drug: NS 0.9% 500 ml Route: IV; Rate: bolus; Site: right antecubital; ph 19:24 Follow up: Response: No adverse reaction; IV Status: Completed infusion; IV Intake: ph 500ml 18:40 Drug: Pepcid 20 mg Route: IVP; Site: right antecubital; ph 19:29 Follow up: Response: No adverse reaction ph 18:40 Drug: Aspirin Chewable Tablet 324 mg Route: PO; ph 19:26 Follow up: Response: No adverse reaction ph 18:40 Drug: Decadron - Dexamethasone 10 mg Route: IVP; Site: right antecubital; ph 19:25 Follow up: Response: No adverse reaction ph 18:45 Drug: Albuterol HFA Inhaler 4 puffs Route: Inhalation; ph 19:25 Follow up: Response: No adverse reaction ph 18:55 Drug: Rocephin 1 grams Route: IV; Rate: per protocol; Site: right antecubital; ph 19:26 Follow up: Response: Other; IV Status: Completed infusion; Nausea/vomiting after IVP ph 18:55 Drug: Zithromax 500 mg Route: IVPB; Infused Over: 1 hrs; Site: right antecubital; ph 21:45 Follow up: Response: No adverse reaction; IV Status: Completed infusion; IV Intake: sf 250ml 18:57 Drug: Zofran (Ondansetron) 4 mg Route: IVP; Site: right antecubital; ph 19:24 Follow up: Response: No adverse reaction ph 19:23 Drug: NS 0.9% 1000 ml Route: IV; Rate: 125 ml/hr; Site: right antecubital; ph 19:24 Follow up: Response: No adverse reaction; IV Status: Infusion continued upon admission ph 19:23 Drug: Ivermectin 12 mg Route: PO; ph 19:24 Follow up: Response: No adverse reaction ph Disposition: 12/10/20 18:29 Hospitalization ordered by Misael Medrano for Inpatient Admission. Preliminary diagnosis are Hypoxemia, SARS-associated coronavirus as the cause of diseases classified elsewhere - covid 19, Essential (primary) hypertension, Other viral pneumonia - covid 19, Type 2 diabetes mellitus. - Bed requested for Telemetry/MedSurg (Inpatient). - Status is Inpatient Admission. mw2 - Condition is Fair. - Problem is new. - Symptoms have improved. Signatures: Dispatcher [employer] EDMS Mo Howard MD MD cha Roszak, Josh, PA PA [id number] Maryanne Tan RN RN Masha Jorgensen RN RN [place] BeataMelvina mw2 Srinath Sanchez RN RN 1 Martin Beasley RN sf Corrections: (The following items were deleted from the chart) 21:23 18:29 Hospitalization Ordered by Misael Medrano for Inpatient Admission. Preliminary cg diagnosis is Hypoxemia; SARS-associated coronavirus as the cause of diseases classified elsewhere - covid 19; Essential (primary) hypertension; Other viral pneumonia - covid 19; Type 2 diabetes mellitus. Bed requested for Telemetry/MedSurg (Inpatient). Status is Inpatient Admission. Condition is Fair. Problem is new. Symptoms have improved. [facility] 22:35 21:23 12/10/2020 18:29 Hospitalization Ordered by Misael Medrano for Inpatient mw2 Admission. Preliminary diagnosis is Hypoxemia; SARS-associated coronavirus as the cause of diseases classified elsewhere - covid 19; Essential (primary) hypertension; Other viral pneumonia - covid 19; Type 2 diabetes mellitus. Bed requested for Telemetry/MedSurg (Inpatient). Status is Inpatient Admission. Condition is Fair. Problem is new. Symptoms have improved. cg
[2020-12-10] MEDS ORDERED: ASPIRIN 81 MG CHEWABLE TABLET ONE (18:32)
[2020-12-10] MEDS ORDERED: FAMOTIDINE 20 MG/2 ML VIAL IV ONE (18:33)
[2020-12-10] MEDS ORDERED: ALBUTEROL INHALER 60 PUFF/8 GM IH ONE (18:33)
[2020-12-10] MEDS ORDERED: dexAMETHasone 10 MG/ML VIAL ONE (18:33)
[2020-12-10] MEDS ORDERED: CEFTRIAXONE/SWI 1gm 1 GM/10 ML SYR ONE (18:33)
[2020-12-10] MEDS ORDERED: NA CHLORIDE 0.9% 1,000 ML ONE (18:33)
[2020-12-10 18:55] LABS: Absolute Lymphocytes (CBC) 1.2 K/uL (0.7-4.9); Basophils % 0.2 % (0-1.3); Hematocrit 41.8 % (36.0-45.0); Lymphocytes % 17.2 % (15.3-44.8); MPV 8.5 fL (7.6-11.3); RBC Red Blood Cell Count 5.22 M/uL (3.86-4.86)
[2020-12-10 18:56] LABS: Protime INR 1.1
[2020-12-10] MEDS ORDERED: IVERMECTIN 3 MG TABLET PO ONE (19:00)
[2020-12-10] MEDS ORDERED: AZITHROMYCIN IV 500 MG in NA CHLORIDE 0.9% 250 ML IVPB ONE (19:00)
--- NOTE | 2020-12-10 19:03 | RAD REPORT ---
EXAM DESCRIPTION: RAD - Chest Single View - 12/10/2020 6:38 pm CLINICAL HISTORY: Cough;Dyspnea, COVID positive, fever COMPARISON: December 01 TECHNIQUE: AP portable chest image was obtained 12/10/2020 6:38 pm . FINDINGS: Lung volumes are low. Bilateral airspace opacification is present. Heart size is normal ra nge for portable imaging. Upper lobe vasculature is mildly prominent. Trachea is midline. No measurab le pleural effusion and no pneumothorax. No acute bony abnormality seen. No acute aortic findings rosa maria pected. IMPRESSION: Alveolar edema or infiltrate pattern is present. Given the provided history, most likely etiology is a COVID-19 pneumonia.
[2020-12-10] MEDS ORDERED: ONDANSETRON 4 MG/2 ML VIAL ONE (19:04)
[2020-12-10 19:27] LABS: ALT/SGPT 120 U/L (12-78); AST/SGOT 74 U/L (15-37); Alkaline Phosphatase 107 U/L (45-117); BUN Blood Urea Nitrogen 17 mg/dL (7-18); Bicarbonate 23 mmol/L (21-32); Bilirubin Direct 0.2 mg/dL (0-0.2); Bilirubin Total 0.6 mg/dL (0.2-1.0); Ferritin 1789.9 ng/mL (8-388); Glucose Level 148 mg/dL (74-106); NT PRO-BNP 48 pg/mL (<125); Potassium 3.6 mmol/L (3.5-5.1); Protein, Total 8.1 g/dL (6.4-8.2); Sodium Level 136 mmol/L (136-145); Troponin (Emerg Dept Use Only) < 0.02 ng/mL (0.0-0.045)
--- NOTE | 2020-12-10 20:18 | RAD REPORT ---
EXAM DESCRIPTION: CT - Chest For Pe Angio - 12/10/2020 8:08 pm CLINICAL HISTORY: Chest pain;Dyspnea; COVID positive TECHNIQUE: Dynamically enhanced 3 mm thick images of the chest were obtained during administration o f approximately 150mL Isovue 370 IV contrast. Coronal and oblique MIP reconstruction images were gene rated and reviewed. Exam utilizes a protocol to evaluate the pulmonary arterial tree. All CT scans are performed using dose optimization technique as appropriate and may include automated exposure control or mA/KV adjustment according to patient size. FINDINGS: No pulmonary emboli are identified. The aorta as imaged shows no acute or suspicious finding. No pericardial thickening or effusion. Extensive peripheral ground-glass opacification is present in the lung parenchyma. This is a pattern well described with COVID-19 pneumonia and is the most likely etiology given the patient's history po sitive COVID study. No endobronchial lesion. No bronchial wall thickening. No pleural effusion or ple ural thickening. No cavitation. No mediastinal or hilar suspicious masses. No chest wall masses or abnormal axillary lymphadenopathy. IMPRESSION: No pulmonary emboli identified. Moderate severity COVID-19 pneumonia pattern.
[2020-12-10] MEDS ORDERED: ACETAMINOPHEN 325 MG TABLET PO PRN (22:59)
[2020-12-10] MEDS ORDERED: GLUCAGON 1 MG/VIAL IM PRN (22:59)
[2020-12-10] MEDS ORDERED: D50W 25 GM/50 ML SYRINGE IV PRN (22:59)
[2020-12-10] MEDS: MELATONIN 5 MG TABLET PO SCH (23:29)
[2020-12-10] MEDS: BENZONATATE 100 MG CAP PO PRN (23:54)
--- NOTE | 2020-12-11 00:14 | P.HP ---
Certification for Inpatient Patient admitted to: Inpatient With expected LOS: >2 Midnights Patient will require the following post-hospital care: None Practitioner: I am a practitioner with admitting privileges, knowledge of patient current condition, hospital course, and medical plan of care. Services: Services provided to patient in accordance with Admission requirements found in Title 42 Section 412.3 of the Code of Federal Regulations <Fausto Hill - Last Filed: 12/11/20 00:04> Patient History Date of Service: 12/11/20 Primary Care Provider: none Reason for admission: Covid Pneumonia, Hypoxia History of Present Illness: This is a 35-year-old female that presented to the emergency room today for increased shortness of breath that started 3 days ago diagnosed on the 01 of December with COVID. Since then she had been on Zithromax for 5 days and steroids. Since she had stopped both of those medications she started having increased cough and difficulty breathing. Came to the emergency room tonight for further evaluation. Patient on room air in the emergency room was found to have an oxygen saturation between 88 and 90%. Patient was placed on oxygen via nasal cannula at 4 L per min and was worked up in the emergency room for COVID. Patient does have a history of high patient does have a history of high blood pressure and ggj-dcdcpbh-gfoejlism diabetes mellitus but currently only on lisinopril. Patient stated that her insurance had labs and no longer could not afford metformin. Patient's lab significant for a CRP of 182 and a ferritin of 17 89. Patient had a potassium 3.6, chloride 104, bicarb 23, BUN 17, creatinine 0.94, glucose 148. Patient had a white cell count 1, hemoglobin 14.4, hematocrit 41.8, platelets 217. Troponin was negative and chest x-ray showed bilateral infiltrates suggestive of viral pneumonia. Medicine was consulted at that time for further evaluation admission. Home medications list reviewed: Yes (Patient currently only on lisinopril) - Past Medical/Surgical History Has patient received pneumonia vaccine in the past: No Diabetic: No -: Pregancy induced HTN -: Obesity -: 2011 - Family History Mother -: Other (see notes) Notes: Grave's Disease, thyroid - Social History Smoking Status: Never smoker Smoking therapy provided: No Alcohol use: Yes CD- Drugs: No Caffeine use: Yes Place of Residence: Home <Fausto Hill - Last Filed: 12/11/20 00:04> Date of Service: 12/11/20 <sohan best - Last Filed: 12/11/20 14:19> Allergies ceftriaxone [From Rocephin] Adverse Reaction (Verified 12/11/20 03:35) Nausea/Vomiting Review of Systems General: Malaise Eyes: Unremarkable ENT: Unremarkable Respiratory: Cough, Shortness of Breath, SOB with Excertion Cardiovascular: Unremarkable Gastrointestinal: Unremarkable Genitourinary: Unremarkable Musculoskeletal: Unremarkable Integumentary: Unremarkable Neurological: Unremarkable Lymphatics: Unremarkable <Fausto Hill - Last Filed: 12/11/20 00:04> Physical Examination - Vital Signs Temperature: 97.2 F Blood Pressure: 146/98 Pulse: 95 Respirations: 18 Pulse Ox (%): 92 (4 lpm NC) - Physical Exam General: Alert, Oriented x3, Cooperative HEENT: PERRLA, Mucous membr. moist/pink, EOMI Neck: Supple, 2+ carotid pulse no bruit, JVD not distended, No Thyromegaly Respiratory: Clear to auscultation bilaterally, Other (Mild tachypnea present upon examination ) Cardiovascular: No edema, Normal pulses, Normal S1 S2, No gallops, No rubs, No murmurs, Irregular heart rate/rhythm (Tachycardic) Capillary refill: <2 Seconds Gastrointestinal: Normal bowel sounds, Soft and benign, Non-distended, No ascites, No tenderness, No masses, No rebound, No guarding Musculoskeletal: No clubbing, No swelling, No contractures, No erythema, No tenderness, No warmth Integumentary: No rashes, No breakdown, No significant lesion, No tenderness/swelling, No erythema, No warmth, No cyanosis Neurological: Normal speech, Normal strength at 5/5 x4 extr, Normal tone, Sensation intact, Cranial nerves 3-12 intact, Normal affect Lymphatics: No axilla or inguinal lymphadenopathy - Studies Laboratory Data (last 24 hrs) 12/10/20 18:30: PT 12.7 H, INR 1.10 12/10/20 18:30: WBC 7.10 D, Hgb 14.4, Hct 41.8, Plt Count 217 12/10/20 18:30: Sodium 136, Potassium 3.6, BUN 17, Creatinine 0.94, Glucose 148 H, Magnesium 2.0, Total Bilirubin 0.6, AST 74 H, ALT 120 H, Alkaline Phosphatase 107 <Shanita Hillshua - Last Filed: 12/11/20 00:04> - Studies Laboratory Data (last 24 hrs) 12/10/20 18:30: PT 12.7 H, INR 1.10 12/10/20 18:30: WBC 7.10 D, Hgb 14.4, Hct 41.8, Plt Count 217 12/10/20 18:30: Sodium 136, Potassium 3.6, BUN 17, Creatinine 0.94, Glucose 148 H, Magnesium 2.0, Total Bilirubin 0.6, AST 74 H, ALT 120 H, Alkaline Phosphatase 107 <sohan best - Last Filed: 12/11/20 14:19> Assessment and Plan - Problems (Diagnosis) (1) Hypertension Current Visit: Yes Status: Chronic Plan: We will monitor blood pressures and maintain blood pressure to have systolic less than 160 and diastolic lessen 110 Qualifiers: Hypertension type: essential hypertension Qualified Code(s): I10 - Essential (primary) hypertension (2) Non-insulin dependent diabetes mellitus Current Visit: Yes Status: Chronic Plan: Blood sugars will be monitored with ACHS schedule. Patient put on mild sliding scale as needed if sugars increase as patient will be on steroids for her COVID pneumonia. Will adjust as necessary. Patient will also be on an ADA diet (3) Pneumonia due to COVID-19 virus Current Visit: Yes Status: Acute Plan: Patient has bilateral infiltrates on chest x-ray consistent with COVID pneumonia. Had tested positive on the but will reconfirm. Patient had elevated CRP and ferritin as well consistent with COVID. Patient will be treated with steroids and oxygen therapy. Will start patient on recommended dosages of daily vitamins and anticoagulants measures. We have consulted pulmonology and he can make further determination if he wants to start patient on remdisivir or convalescent plasma. We will continue to monitor her oxygen saturation and upgrade as needed. (4) Hypoxia Current Visit: Yes Status: Acute Plan: Patient placed on oxygen therapy and will continue to monitor her pulse oximetry. Will upgrade as needed based on physical exam and oxygen demand. Discharge Plan: Home Plan to discharge in: Greater than 2 days - Advance Directives Does patient have a Living Will: No Does patient have a Durable POA for Healthcare: No - Code Status/Comfort Care Code Status Assessed: Yes Code Status: Full Code Critical Care: No Time Spent Managing Pts Care (In Minutes): 70 <Fausto Hill - Last Filed: 12/11/20 00:04> Physician Review: Patient Assessed, Agree with Above Assessment and Plan Physician Review Additional Text: Pneumonia due to COVID 19 Acute respiratory failure with hypoxia. Plan: High-dose steroid Titrate oxygen Vitamin D and C supplementation. <sohan best - Last Filed: 12/11/20 14:19>
[2020-12-11 01:42] VITALS: BMI 33.2
[2020-12-11 04:05] LABS: Absolute Lymphocytes (CBC) 0.5 K/uL (0.7-4.9); Basophils % 0.1 % (0-1.3); Hematocrit 39.3 % (36.0-45.0); Lymphocytes % 16.6 % (15.3-44.8); MPV 8.5 fL (7.6-11.3); RBC Red Blood Cell Count 4.88 M/uL (3.86-4.86)
[2020-12-11 04:40] LABS: BUN Blood Urea Nitrogen 12 mg/dL (7-18); Bicarbonate 24 mmol/L (21-32); Glucose Level 330 mg/dL (74-106); HDL Cholesterol 27 mg/dL (40-60); LDL Cholesterol, Calculated 84 (<130); Potassium 4.4 mmol/L (3.5-5.1); Sodium Level 138 mmol/L (136-145)
[2020-12-11] MEDS: INSULIN -REGULAR HUMAN 50 UNIT/0.5 ML ML SQ SCH ×4 (07:30→20:35)
[2020-12-11] MEDS ORDERED: INFLUENZA VACCINE (for 3y+) 0.5 ML DOSE IMVAC ONE (09:00)
[2020-12-11] MEDS: ASCORBIC ACID 500 MG TABLET PO SCH ×4 (09:41→20:17)
[2020-12-11] MEDS: VITAMIN D 5,000 UNIT CAP PO SCH (09:41)
[2020-12-11] MEDS: lisinopriL 20 MG TAB PO SCH (09:41)
[2020-12-11] MEDS: ZINC SULFATE 220 MG CAP PO SCH (09:41)
[2020-12-11] MEDS: APIXABAN 2.5 MG TABLET PO SCH ×2 (09:42→20:16)
[2020-12-11] MEDS: METHYLPREDNISOLONE 40 MG INJ IV SCH ×2 (09:42→20:19)
[2020-12-11] MEDS: FAMOTIDINE 20 MG/2 ML VIAL IV SCH ×2 (09:42→20:15)
[2020-12-11] MEDS: THIAMINE 200 MG/2 ML INJ IVP SCH ×2 (09:42→20:18)
--- NOTE | 2020-12-11 11:54 | EKG ---
Test Date: 2020-12-10 Test Time: 19:54:15 Credit Risk Modeler: FLORES MEASUREMENT RESULTS: Intervals: Rate: 116 MA: 158 QRSD: 72 QT: 338 QTc: 469 [place]: P: 25 MA: 158 QRS: -3 T: 52 INTERPRETIVE STATEMENTS: Sinus tachycardia Voltage criteria for left ventricular hypertrophy Abnormal ECG Compared to ECG 12/01/2020 17:42:44 Left ventricular hypertrophy now present Electronically Signed On 12-11-20 11:53:22 SUB PRIOR by Calixto Zazueta
--- NOTE | 2020-12-11 12:09 | P.CNS ---
Date of Consult: 12/11/20 Primary Care Provider: none Chief Complaint: Covid Pneumonia, Hypoxia History of Present Illness: Patient is 35 years of age admitted to the hospital with worsening dyspnea she was diagnosed with elizondo virus on December 01 is treated with antibiotics 5 days of steroids continue to get worse progressive cough she is doing much better on 2 L of nasal cannula oxygen Allergies ceftriaxone [From Rocephin] Adverse Reaction (Verified 12/11/20 03:35) Nausea/Vomiting - Past Medical/Surgical History Diabetic: No -: Pregancy induced HTN -: Obesity -: NIDDM -: HTN -: 2011 - Family History Mother Medical History: Other (see notes) Notes: Grave's Disease, thyroid - Social History Smoking Status: Never smoker Alcohol use: Yes CD- Drugs: No Caffeine use: Yes Place of Residence: Home Review of Systems General: Weakness Respiratory: Cough, Shortness of Breath Physical Examination Temp Pulse Resp BP Pulse Ox 96.8 F 89 18 154/107 H 92 12/11/20 11:43 12/11/20 11:43 12/11/20 11:43 12/11/20 11:43 12/11/20 11:43 Laboratory Data (last 24 hrs) 12/10/20 18:30: PT 12.7 H, INR 1.10 12/10/20 18:30: WBC 7.10 D, Hgb 14.4, Hct 41.8, Plt Count 217 12/10/20 18:30: Sodium 136, Potassium 3.6, BUN 17, Creatinine 0.94, Glucose 148 H, Magnesium 2.0, Total Bilirubin 0.6, AST 74 H, ALT 120 H, Alkaline Phosphatase 107 - Problems (1) Pneumonia due to COVID-19 virus Current Visit: Yes Status: Acute Plan: Patient is 35 years of age admitted with respiratory failure from elizondo virus she is doing much better on 2 L of nasal cannula oxygen ferritin levels are elevated no evidence of pulmonary embolism CT scan consistent with elizondo virus pneumonia patient is stable enough to be discharged home on prednisone 20 mg twice a day for at least 10 days and then decrease in visit with me in 2 weeks full anticoagulation multi vitamin support stable to be discharged labs reviewed inflammatory parameters have been elevated
[2020-12-11] MEDS ORDERED: METHYLPREDNISOLONE 125 MG INJ IV ONE (13:00)
--- NOTE | 2020-12-11 14:25 | P.PN ---
Subjective Date of Service: 12/11/20 Primary Care Provider: none Chief Complaint: Covid Pneumonia, Hypoxia Patient for shortness of breath. She is currently tolerating 4 L of oxygen by nasal cannula. Physical Examination - Vital Signs Temperature: 96.8 F Blood Pressure: 154/107 Pulse: 89 Respirations: 18 Pulse Ox (%): 92 - Physical Exam General: Alert, Mild distress Neck: Supple, JVD not distended Cardiovascular: No edema, Regular rate/rhythm Gastrointestinal: Soft and benign, Non-distended Musculoskeletal: No swelling Integumentary: No rashes Neurological: Other (No focal motor deficit) - Studies Laboratory Data (last 24 hrs) 12/10/20 18:30: PT 12.7 H, INR 1.10 12/10/20 18:30: WBC 7.10 D, Hgb 14.4, Hct 41.8, Plt Count 217 12/10/20 18:30: Sodium 136, Potassium 3.6, BUN 17, Creatinine 0.94, Glucose 148 H, Magnesium 2.0, Total Bilirubin 0.6, AST 74 H, ALT 120 H, Alkaline Phosphatase 107 Assessment And Plan - Current Problems (Diagnosis) (1) Acute respiratory failure with hypoxia Current Visit: Yes Status: Acute (2) Pneumonia due to COVID-19 virus Current Visit: Yes Status: Acute (3) Hypertension Current Visit: Yes Status: Chronic Qualifiers: Hypertension type: essential hypertension Qualified Code(s): I10 - Essential (primary) hypertension (4) Non-insulin dependent diabetes mellitus Current Visit: Yes Status: Chronic - Plan Continue IV Solu-Medrol. Titrate oxygen. Vitamin-D, vitamin-C, zinc and vitamin supplementation. Patient given a dose of Ivermectin. Patient on full anticoagulation with Eliquis. Pulmonary input appreciated. Arranged for home oxygen. Physician Review: Patient Assessed, Agree with Above Assessment and Plan Physician Review Additional Text: Pneumonia due to COVID 19 Acute respiratory failure with hypoxia. Plan: High-dose steroid Titrate oxygen Vitamin D and C supplementation.
[2020-12-11] MEDS ORDERED: GLUCAGON 1 MG/VIAL IM PRN (14:28)
[2020-12-11] MEDS ORDERED: D50W 25 GM/50 ML VIAL IV PRN ×2 (14:39→15:00)
[2020-12-11] MEDS ORDERED: INSULIN GLARGINE 100 UNITS/ML SQ SCH (21:00)
[2020-12-11] MEDS: MELATONIN 5 MG TABLET PO SCH (21:44)
[2020-12-11] MEDS: BENZONATATE 100 MG CAP PO PRN (21:44)
[2020-12-12 04:05] LABS: BUN Blood Urea Nitrogen 15 mg/dL (7-18); Bicarbonate 24 mmol/L (21-32); Glucose Level 340 mg/dL (74-106); Potassium 4.5 mmol/L (3.5-5.1); Sodium Level 138 mmol/L (136-145)
[2020-12-12] MEDS: APIXABAN 2.5 MG TABLET PO SCH (08:52)
[2020-12-12] MEDS: lisinopriL 20 MG TAB PO SCH (08:53)
[2020-12-12] MEDS: ZINC SULFATE 220 MG CAP PO SCH (08:53)
[2020-12-12] MEDS: VITAMIN D 5,000 UNIT CAP PO SCH (08:53)
[2020-12-12] MEDS: THIAMINE 200 MG/2 ML INJ IVP SCH (08:53)
[2020-12-12] MEDS: ASCORBIC ACID 500 MG TABLET PO SCH ×3 (08:53→16:24)
[2020-12-12] MEDS: METHYLPREDNISOLONE 40 MG INJ IV SCH (08:53)
[2020-12-12] MEDS: FAMOTIDINE 20 MG/2 ML VIAL IV SCH (08:54)
[2020-12-12] MEDS: INSULIN -REGULAR HUMAN 50 UNIT/0.5 ML ML SQ SCH ×3 (08:54→16:25)
[2020-12-12] MEDS ORDERED: HYDRALAZINE HCL 20 MG/ML VIAL IV PRN (08:57)
[2020-12-12] MEDS ORDERED: AMLODIPINE 5 MG TAB PO SCH (09:00)
[2020-12-12] MEDS ORDERED: IVERMECTIN 3 MG TABLET PO ONE (09:00)
[2020-12-12 10:30] VITALS: O2SAT 98
--- NOTE | 2020-12-12 11:07 | P.DS ---
Admission Date: 12/10/20 Discharge Date: 12/12/20 Primary Care Provider: none Disposition: ROUTINE DISCHARGE Reason for Admission: Covid Pneumonia, Hypoxia Consultations: Pulmonary-Dr. Stevens - Problems (1) Acute respiratory failure with hypoxia Current Visit: Yes Status: Acute (2) Pneumonia due to COVID-19 virus Current Visit: Yes Status: Acute (3) Hypertension Current Visit: Yes Status: Chronic Qualifiers: Hypertension type: essential hypertension Qualified Code(s): I10 - Essential (primary) hypertension (4) Non-insulin dependent diabetes mellitus Current Visit: Yes Status: Chronic Brief History of Present Illness: 35-year-old morbidly obese woman with a history of diabetes presented to the emergency department with a complaint of progressive shortness of breath. He was diagnosed with COVID 19 on 12/01/2020. Patient took oral steroid and Zith romax. Her cough and shortness of breath increased after she completed her oral medications. Patient was hypoxic on room air with oxygen saturation in the 80s in the ED. He was placed on oxygen by nasal cannula and admitted for further management. Hospital Course: Patient admitted to the medical floor and started on IV steroid. She was also placed on vitamin-D and C supplementation common zinc supplementation and thiamine supplementation. She was given a dose of Ivermectin. Patient was maintained on 4 L of oxygen by nasal cannula. Today she feels better. She has been stable since hospitalization. Patient is discharged with oral prednisone therapy and vitamin supplementation. Her blood sugar was elevated during the hospital stay. Patient is discharged with Lantus insulin and metformin. Her blood pressure was also elevated and she is prescribed amlodipine and lisinopril. She will follow with Dr. Stevens within 1 week. Vital Signs/Physical Exam: Temp Pulse Resp BP Pulse Ox 97.2 F 90 22 H 172/102 H 99 12/12/20 08:00 12/12/20 08:00 12/12/20 08:00 12/12/20 08:00 12/12/20 08:00 General: Alert, In no apparent distress, Oriented x3 Neck: JVD not distended Cardiovascular: No edema, Regular rate/rhythm Gastrointestinal: Non-distended Musculoskeletal: No swelling Integumentary: No rashes Neurological: Other (No focal motor deficit.) Laboratory Data at Discharge: WBC 3.10 K/uL (4.3-10.9) L D 12/11/20 03:30 Hgb 13.5 g/dL (12.0-15.0) 12/11/20 03:30 Hct 39.3 % (36.0-45.0) 12/11/20 03:30 Plt Count 224 K/uL (152-406) 12/11/20 03:30 PT 12.7 SECONDS (9.5-12.5) H 12/10/20 18:30 INR 1.10 12/10/20 18:30 Sodium 138 mmol/L (136-145) 12/12/20 03:11 Potassium 4.5 mmol/L (3.5-5.1) 12/12/20 03:11 BUN 15 mg/dL (7-18) 12/12/20 03:11 Creatinine 0.70 mg/dL (0.55-1.3) 12/12/20 03:11 Glucose 340 mg/dL (74-106) H 12/12/20 03:11 Magnesium 2.0 mg/dL (1.8-2.4) 12/10/20 18:30 Total Bilirubin 0.6 mg/dL (0.2-1.0) 12/10/20 18:30 AST 74 U/L (15-37) H 12/10/20 18:30 ALT 120 U/L (12-78) H 12/10/20 18:30 Alkaline Phosphatase 107 U/L (45-117) 12/10/20 18:30 Triglycerides 134 mg/dL (<150) 12/11/20 03:30 Cholesterol 138 mg/dL (<200) 12/11/20 03:30 HDL Cholesterol 27 mg/dL (40-60) L 12/11/20 03:30 Cholesterol/HDL Ratio 5.11 12/11/20 03:30 Home Medications: Amlodipine [Norvasc*] 5 mg PO DAILY #30 tab 12/12/20 Apixaban [Eliquis] 5 mg PO BID #60 tablet 12/12/20 Ascorbic Acid [Vitamin C*] 2,000 mg PO BID #240 tablet 12/12/20 Benzonatate [Tessalon Perle*] 100 mg PO TID PRN #90 cap 12/12/20 Blood-Glucose Meter [Contour] 1 each MC TID #1 kit 12/12/20 Cholecalciferol (Vitamin D3) [Vitamin D3] 4,000 unit PO DAILY #60 capsule 12/12/20 Insulin Glargine,Hum.rec.anlog [Lantus Solostar] 10 unit SQ BEDTIME #1 insuln.pen 12/12/20 Lancets/Blood Glucose Strips [Fora [id number] Strp-Lnct] 1 each MC TID #1 combo..pkg 12/12/20 Melatonin 10 mg PO BEDTIME #30 tablet 12/12/20 Thiamine HCl 200 mg PO DAILY #60 tablet 12/12/20 Zinc Sulfate [Zinc Sulfate*] 220 mg PO DAILY #30 cap 12/12/20 lisinopriL [Prinivil*] 20 mg PO DAILY #30 tab 12/12/20 predniSONE [Deltasone] 20 mg PO BID #21 tab 12/12/20 New Medications: Blood-Glucose Meter [Contour] 1 each MC TID #1 kit Apixaban [Eliquis] 5 mg PO BID #60 tablet Lancets/Blood Glucose Strips [Fora [id number] Strp-Lnct] 1 each MC TID #1 combo..pkg Insulin Glargine,Hum.rec.anlog [Lantus Solostar] 10 unit SQ BEDTIME #1 insuln.pen Melatonin 10 mg PO BEDTIME #30 tablet Amlodipine [Norvasc*] 5 mg PO DAILY #30 tab predniSONE [Deltasone] 20 mg PO BID #21 tab lisinopriL [Prinivil*] 20 mg PO DAILY #30 tab Benzonatate [Tessalon Perle*] 100 mg PO TID PRN #90 cap PRN Reason: Cough Thiamine HCl 200 mg PO DAILY #60 tablet Ascorbic Acid [Vitamin C*] 2,000 mg PO BID #240 tablet Cholecalciferol (Vitamin D3) [Vitamin D3] 4,000 unit PO DAILY #60 capsule Zinc Sulfate [Zinc Sulfate*] 220 mg PO DAILY #30 cap Diet: ADA Activity: Ad saida Followup: NONE,NONE [Primary Care Provider] - 1-2 Weeks Carlos Enrique Stevens MD [ACTIVE - CAN ADMIT] -
[2020-12-12] MEDS ORDERED: INFLUENZA VACCINE (for 3y+) 0.5 ML DOSE IMVAC ONE (17:00)
[2020-12-12 17:32] VITALS: BP 150/90; TEMP 97.8
[2020-12-12] MEDS ORDERED: METHYLPREDNISOLONE 125 MG INJ IV SCH (21:00)
== END 2020-12-12 17:30 | disposition home or self-care (01) | DRG 177 ==
LOC: ER 15:23 → ERHOLD 21:23 → 4TH 22:14
PROVIDERS: ADMIT Internal Medicine; ATTEND Internal Medicine
DX: U07.1 COVID-19 (principal); J12.82 Pneumonia due to coronavirus disease 2019; J96.01 Acute respiratory failure with hypoxia; I10 Essential (primary) hypertension; E11.9 Type 2 diabetes mellitus without complications; E66.01 Morbid (severe) obesity due to excess calories; Z68.33 Body mass index [BMI] 33.0-33.9, adult; Z79.899 Other long term (current) drug therapy; Z88.1 Allergy status to other antibiotic agents; Z79.01 Long term (current) use of anticoagulants; Z79.4 Long term (current) use of insulin; Z79.52 Long term (current) use of systemic steroids; Z23 Encounter for immunization
CPT/HCPCS: 36415; 71045; 71275; 80048; 80061; 80076; 82728; 82947; 83036; 83735; 83880; 84484; 85025; 85610; 86140; 87040; 90471; 93005; 94760; 96365; 96366; 96368; 96375; 99285; J0360; J0456; J0696; J1100; J1815; J2405; J2920; J2930; J3411; J7030; J7050; Q2035; Q9967